=== PATIENT | female | born 1940 | race Hispanic/Latino ===

== ENCOUNTER 2017-03-04 21:08 | Observation (INO) | payer MEDICARE ==
[2017-03-04 21:09] VITALS: BMI 34.2
[2017-03-04] MEDS ORDERED: Nitroglycerin 2% Ointment Foilpak UD TOP STA (22:09)
[2017-03-04] MEDS ORDERED: Alum-Mag Hydrox-Simethicone Susp (30 mL) PO STA (22:10)
[2017-03-04] MEDS ORDERED: Nitroglycerin 2% Ointment Foilpak UD TOP ONE (22:18)
[2017-03-04 22:23] LABS: BASO # 0.1 K/uL (0.0-0.2); BASO % 0.5 % (0.0-2.0); EOS # 0.4 K/uL (0.0-0.7); EOS % 3.8 % (0.0-4.0); HEMATOCRIT 37.6 % (34.0-47.0); LYMPH # 2.5 K/uL (1.0-4.3); LYMPH % 26.2 % (20.0-40.0); MEAN CORPUSCULAR HGB CONC 33.8 g/dL (33.0-37.0); MEAN PLATELET VOLUME 7.7 fL (7.2-11.7); MONO # 0.7 K/uL (0.0-0.8); MONO % 7.5 % (0.0-10.0); NRBC % 0.1 % (0.0-2.0); RED CELL DISTRIBUTION WIDTH 14.1 % (11.5-14.5); WHITE BLOOD COUNT 9.7 K/uL (4.8-10.8)
[2017-03-04 22:36] LABS: INR 1.1
[2017-03-04 22:39] LABS: CHLORIDE 100 mmol/L (98-107); POTASSIUM 4.3 mmol/L (3.6-5.2); SODIUM 134 mmol/L (132-148)
[2017-03-04 22:41] LABS: BILIRUBIN,TOTAL 0.4 mg/dL (0.2-1.3); CARBON DIOXIDE 22 mmol/L (22-30); GFR AFRICAN-AMERICAN 53
[2017-03-04 22:42] LABS: ALB/GLOB RATIO 1.2 (1.0-2.1); ALKALINE PHOSPHATASE 133 U/L (38-126); ALT/SGPT 26 U/L (9-52); AST/SGOT 23 U/L (14-36); BLOOD UREA NITROGEN 22 mg/dL (7-17); GLUCOSE,RANDOM 112 mg/dL (65-105); TOTAL PROTEIN 7.7 g/dL (6.3-8.3)
[2017-03-04] MEDS ORDERED: Aluminum Hydroxide/Magnesium Hydroxide Susp (30 mL) ONE (22:46)
--- NOTE | 2017-03-04 23:39 | C.PDOC ---
History Of Present Illness Pt c/o chest pain radiating to left arm. Time Seen by Provider: 03/04/17 21:54 Chief Complaint (Nursing): Chest Pain History Per: Patient, Family Onset/Duration Of Symptoms: Hrs (2) Current Symptoms Are (Timing): Still Present Severity: Moderate Quality: "Pain" Associated Symptoms: Nausea, Other (Near syncope) Modifying Factors: Other Indicated Below Alleviating Factors: None Additional History Per: Prior Records Past Medical History Reviewed: Historical Data, Nursing Documentation, Vital Signs Vital Signs: Last Vital Signs Temp 98 F 03/04/17 21:18 Pulse 76 03/04/17 22:31 Resp 18 03/04/17 22:31 BP 158/74 H 03/04/17 22:31 Pulse Ox 95 03/04/17 22:31 - Medical History PMH: Anxiety, Arthritis, Atrial Fibrillation, CAD, Cardia Arrhythmia (SVT), Colonic Polyps, Depression (lost in may 2014), Fractures (Left Wrist Fx.3 yrs agoTreated with casT), GERD, Hiatal Hernia, HTN, Hypercholesterolemia, TIA (MULTIPLE; LAST ONE 2013) Surgical History: Cholecystectomy, Coronary Stent (4), Endoscopy, Hernia Repair - [facility] Procedures ANGIOPLASTY OF OTHER NON-CORONARY VESSEL(S) (04/20/14) CONTRAST AORTOGRAM (04/20/14) CONTRAST ARTERIOGRAM-LEG (04/20/14) CORONAR ARTERIOGR-2 CATH (01/19/14) ESOPHAGOGASTRODUODENOSCOPY [EGD] W/CLOSED BIOPSY (10/06/14) INFLUENZA VACCINATION (03/27/14) INSEJ [id number] PERIPHERAL NON-CORONARY VES STENT(S) (04/20/14) INSERT OF MONITOR DEV INTO CHEST SUBCU/FASCIA, OPEN APPROACH (12/21/15) INSERTION OF ONE VASCULAR STENT (04/20/14) INSERTION OF THREE VASCULAR STENTS (01/20/14) INSRT OF DRUG-ELUTING CORON ARTERY STENTS(S) (01/20/14) INTRAVASCULAR IMAGING OF PERIPHERAL VESSELS (04/20/14) LEFT HEART CARDIAC CATH (05/08/14) LT HEART ANGIOCARDIOGRAM (05/08/14) OTH NONOPER CARD AND VASC MEASURE (09/21/14) PERCUTANEOUS TRANSLUMINAL CORONARY ANGIOPLASTY [PTCA] (01/20/14) PROCEDURE ON SINGLE VESSEL (01/20/14) PROCEDURE ON TWO VESSELS (04/20/14) Family History: States: Unknown Family Hx - Social History Hx Tobacco Use: No Hx Alcohol Use: No Hx Substance Use: No - Immunization History Hx Tetanus Toxoid Vaccination: No Hx Influenza Vaccination: Yes Hx Pneumococcal Vaccination: No Review Of Systems Except As Marked, All Systems Reviewed And Found Negative. Constitutional: Negative for: Fever Cardiovascular: Positive for: Chest Pain, Light Headedness Respiratory: Negative for: Hemoptysis Gastrointestinal: Negative for: Vomiting, Abdominal Pain Musculoskeletal: Positive for: Shoulder Pain (left), Back Pain. Negative for: Neck Pain Skin: Negative for: Rash Neurological: Positive for: Headache. Negative for: Weakness, Numbness Physical Exam - Physical Exam Appears: Non-toxic, No Acute Distress Skin: Normal Color, Warm, Dry, No Rash Head: Atraumatic, Normacephalic Eye(s): bilateral: PERRL, EOMI Neck: Normal ROM, Supple Cardiovascular: Rhythm Regular Respiratory: Normal Breath Sounds, No Accessory Muscle Use Gastrointestinal/Abdominal: Soft, No Tenderness Back: No CVA Tenderness Extremity: Normal ROM, No Calf Tenderness Neurological/Psych: Oriented x3, Normal Motor, Normal Sensation ED Course And Treatment - Laboratory Results Result Diagrams: 03/04/17 22:20 03/04/17 22:20 Lab Interpretation: No Acute Changes ECG: Interpreted By Me, Viewed By Me ECG Rhythm: Sinus Rhythm, Nonspecific Changes Rate From EC O2 Sat by Pulse Oximetry: 95 Pulse Ox Interpretation: Normal - Radiology CXR: Interpreted by Me, Viewed By Me CXR Interpretation: Yes: No Acute Disease Progress - Interventions Interventions:: Observation, Oxygen - Medications Administered Oral: Antacid, Aspirin (taken by pt prior to arrival) Intravenous: H-2 paulo - Data Reviewed Data Reviewed: Lab, Old records - Patient Status Patient status: Partially improved - Continuity of Care Discussed patient case with:: Patient, Family-HIPPA compliant, ED Nurse, PMD Disposition Discussed With : Franck Hoffman Comment: He accepted pt on his service and gave admitting orders to the nurse. Doctor Will See Patient In The: Hospital Counseled Patient/Family Regarding: Studies Performed, Diagnosis - Disposition Disposition: HOSPITALIZED Disposition Time: 23:42 Condition: FAIR - Clinical Impression Clinical Impression: Chest pain, rule out acute myocardial infarction
[2017-03-05 00:29] VITALS: RESP 20
--- NOTE | 2017-03-05 07:57 | RAD ---
PROCEDURE: CHEST RADIOGRAPH, 1 VIEW HISTORY: chest pain COMPARISON: Portable chest 12/20/2015. FINDINGS: LUNGS: No definite infiltrate appreciated bilaterally. Limited linear atelectasis appears in the mid right lung zone laterally and an event recorder is noted at the inferior left chest. PLEURA: Trace left pleural effusion is in question. No right pleural effusion. No pneumothorax bilaterally. CARDIOVASCULAR: Stable cardiomegaly. No pulmonary vascular derangement identified. OSSEOUS STRUCTURES: No significant abnormalities. VISUALIZED UPPER ABDOMEN: Mammilated and elevated right hemidiaphragm is again appreciated. OTHER FINDINGS: None. IMPRESSION: Trace of pleural effusion is in question and limited linear atelectasis in the mid right lung zone laterally. No acute infiltrate bilaterally. Stable cardiomegaly. Interval event recorder now identified in the left chest inferiorly.
[2017-03-05] MEDS: Ranolazine 500 mg Extended Release Tablets PO SCH (09:48)
[2017-03-05] MEDS: Multivitamin With Minerals Tab PO SCH (09:48)
[2017-03-05] MEDS: Enoxaparin 30 mg Syringe SC SCH (09:51)
[2017-03-05] MEDS ORDERED: CHOLECALCIFEROL 2000 UNIT PO SCH (10:00)
[2017-03-05] MEDS ORDERED: Pantoprazole 40 mg EC Tab PO SCH (10:00)
[2017-03-05] MEDS ORDERED: Aluminum Hydroxide/Magnesium Hydroxide Susp (30 mL) PO ONE (12:30)
[2017-03-05] MEDS: Pantoprazole 40 mg EC Tab PO SCH (13:24)
[2017-03-05] MEDS ORDERED: Home Med 1 UNIT (Atorvastatin [Lipitor] 1 TAB) PO SCH (18:00)
[2017-03-05] MEDS: diltiaZEM 120 mg/24 Hours CD Cap PO SCH (18:08)
--- NOTE | 2017-03-05 19:25 | CP.PCM.HP ---
Past Patient History - Past Medical History & Family History Past Medical History?: Yes - Past Social History Smoking Status: Never Smoked - CARDIAC Hx Hypercholesterolemia: Yes Hx Hypertension: Yes - PULMONARY Hx Respiratory Disorders: No - NEUROLOGICAL Hx Transient Ischemic Attacks (TIA): Yes (MULTIPLE; LAST ONE 2013) - HEENT Hx HEENT Problems: No - RENAL Hx Chronic Kidney Disease: No - ENDOCRINE/METABOLIC Hx Diabetes Mellitus Type 2: Yes - HEMATOLOGICAL/ONCOLOGICAL Hx Blood Disorders: No Hx Blood Transfusions: No Hx Blood Transfusion Reaction: No - INTEGUMENTARY Hx Dermatological Problems: No - MUSCULOSKELETAL/RHEUMATOLOGICAL Hx Arthritis: Yes - GASTROINTESTINAL Hx Gastrointestinal Disorders: Yes Hx Gastroesophageal Reflux: Yes Hx Hemorrhoids: Yes Hx Ulcer: Yes - GENITOURINARY/GYNECOLOGICAL Hx Genitourinary Disorders: No - PSYCHIATRIC Hx Anxiety: Yes Hx Depression: Yes (lost in may 2014) Hx Substance Use: No - SURGICAL HISTORY Hx Cholecystectomy: Yes Hx Coronary Stent: Yes (4) - ANESTHESIA Hx Anesthesia: Yes Hx Anesthesia Reactions: No Hx Malignant Hyperthermia: No Meds Allergies/Adverse Reactions: Allergies Allergy/AdvReac Type Severity Reaction Status Date / Time tramadol Allergy Severe SWELLING Verified 07/28/16 14:15 Penicillins Allergy Intermediate RASH Verified 07/28/16 14:15 ticagrelor [From BRILINTA] Allergy Intermediate RASH Verified 07/28/16 14:15 chamonile Allergy Severe ANAPHYLAXIS Uncoded 07/28/16 14:15 ct contrast Allergy Severe SWELLING Uncoded 07/28/16 14:15 Results - Vital Signs Recent Vital Signs: Last Vital Signs Temp 98.2 F 03/05/17 15:00 Pulse 82 03/05/17 15:00 Resp 20 03/05/17 15:00 BP 163/93 H 03/05/17 15:00 Pulse Ox 95 03/05/17 15:00 - Labs Result Diagrams: 03/04/17 22:20 03/04/17 22:20 Labs: Laboratory Results - last 24 hr 03/04/17 03/04/17 03/04/17 22:20 22:20 22:20 WBC 9.7 RBC 4.37 Hgb 12.7 Hct 37.6 MCV 86.0 D MCH 29.0 MCHC 33.8 RDW 14.1 Plt Count 281 MPV 7.7 Neut % (Auto) 62.0 Lymph % (Auto) 26.2 Sevier % (Auto) 7.5 Eos % (Auto) 3.8 Baso % (Auto) 0.5 Neut # 6.0 Lymph # 2.5 Sevier # 0.7 Eos # 0.4 Baso # 0.1 PT 11.8 INR 1.1 APTT 34 Sodium 134 Potassium 4.3 Chloride 100 Carbon Dioxide 22 Anion Gap 16 BUN 22 H Creatinine 1.2 Est GFR ( Amer) 53 Est GFR (Non-Af Amer) 44 POC Glucose (mg/dL) Random Glucose 112 H Calcium 9.0 Total Bilirubin 0.4 AST 23 ALT 26 Alkaline Phosphatase 133 H Total Creatine Kinase 38 CK-MB (Mass) 1.03 Troponin I, Quant < 0.0120 NT-Pro-B Natriuret Pep 75.4 Total Protein 7.7 Albumin 4.2 Globulin 3.4 Albumin/Globulin Ratio 1.2 03/05/17 03/05/17 03/05/17 06:10 08:50 11:25 WBC RBC Hgb Hct MCV MCH MCHC RDW Plt Count MPV Neut % (Auto) Lymph % (Auto) Sevier % (Auto) Eos % (Auto) Baso % (Auto) Neut # Lymph # Sevier # Eos # Baso # PT INR APTT Sodium Potassium Chloride Carbon Dioxide Anion Gap BUN Creatinine Est GFR ( Amer) Est GFR (Non-Af Amer) POC Glucose (mg/dL) 80 159 H Random Glucose Calcium Total Bilirubin AST ALT Alkaline Phosphatase Total Creatine Kinase 39 CK-MB (Mass) 1.03 Troponin I, Quant < 0.0120 NT-Pro-B Natriuret Pep Total Protein Albumin Globulin Albumin/Globulin Ratio 03/05/17 16:32 WBC RBC Hgb Hct MCV MCH MCHC RDW Plt Count MPV Neut % (Auto) Lymph % (Auto) Sevier % (Auto) Eos % (Auto) Baso % (Auto) Neut # Lymph # Sevier # Eos # Baso # PT INR APTT Sodium Potassium Chloride Carbon Dioxide Anion Gap BUN Creatinine Est GFR ( Amer) Est GFR (Non-Af Amer) POC Glucose (mg/dL) 116 H Random Glucose Calcium Total Bilirubin AST ALT Alkaline Phosphatase Total Creatine Kinase CK-MB (Mass) Troponin I, Quant NT-Pro-B Natriuret Pep Total Protein Albumin Globulin Albumin/Globulin Ratio
[2017-03-06] MEDS ORDERED: Aminophylline 25 mg/ml Inj ONE (08:52)
[2017-03-06] MEDS: Pantoprazole 40 mg EC Tab PO SCH ×2 (10:57→13:48)
[2017-03-06] MEDS: Multivitamin With Minerals Tab PO SCH ×2 (10:57→13:48)
[2017-03-06] MEDS: Ranolazine 500 mg Extended Release Tablets PO SCH ×2 (10:57→13:48)
[2017-03-06] MEDS: Enoxaparin 30 mg Syringe SC SCH ×2 (10:57→13:48)
[2017-03-06] MEDS: Ergocalciferol 50,000 Intl Units Cap PO SCH ×2 (10:57→13:47)
[2017-03-06 15:20] VITALS: BP 157/80; TEMP 97.8; O2SAT 96
--- NOTE | 2017-03-06 15:36 | CARD ---
APPROVED REPORT EKG Measurement Heart [id number] 196P20 [id number] <Conclusion> Normal sinus rhythm Septal infarct, age undetermined Abnormal ECG
--- NOTE | 2017-03-06 16:15 | CARD ---
APPROVED REPORT Protocol: LEXISCAN Test Type: LEXISCAN STRESS Test Indications: CHEST PAIN Target HR: 146 bpm Resting ECG: Normal Resting Heart Rate: 72 bpm Resting Blood Pressure: 130/80mmHg submaximum (85%): 124 bpm TEST SUMMARY PREINFSNHYPERV.45:05..1.574135/80.0. INFUSIONDOSE 100:30..1.074/.1. YIFPTPAVQ91:17..1.9000704/80.0. PROCEDURE Pharmacologic stress testing was performed using 0.4mg per 5ml of regadenoson given intravenously over 7-10 seconds. POST EXERCISE Reason for Termination: Stress test completed Target HR: No Max HR: 74 bpm 69% of Maximum Predicted HR: 146 bpm Exercise duration: 00:30 min:sec, 0 Stage Exercise capacity: 1.0METs Max Blood Pressure: 130/80mmHg Blood Pressure response to exercise: Appropriate Heart Rate response to exercise: Appropriate Chest Pain: No, None Angina index: 0 Arrhythmia: No, None ST Change: No, None Deviation: 0 mm INTERPRETATION Stress EKG Conclusion: Nuclear report to follow EXAM: Myocardial Perfusion REST/STRESS Imaging Protocol The imaging protocol used to acquire images was Rest Tc-99m/stress Tc-99m 1 day Rest Spect myocardial perfusion imaging was performed in supine position 45 minutes following the injection of 12.3 mCi of Tc-99 Myoview. Gated Stress Spect was performed 45 minutes after intravenous 31.2 mCi Tc-99 Myoview injection. The images were gated to evaluate regional wall motion and calculate ventricular ejection fraction.Images were reconstructed using backfilter projection method in short horizontal and verticle long axis. Spect slices were generated. RESTING DATA EDV68.47xfCE6.90L/min ESV14.00mlMyocardial Mple343.00g Av. Heart Rate72.00bpm EF79.00% STRESS DATA EDV67.39hmRS0.90L/min ESV13.00mlMyocardial Gsbo909.00g EF81.00% Regional WT score at stress:1.00 Regional WM score at stress:0.00 Summed WT score at stress:2.00 Av. Heart Rate73.00bpmSummed WM score at stress:0.00 LV Perf. Quant 17 Seg. SSS10.00 17 Seg. SRS4.00 17 Seg. SDS6.00 Stress Defect Extent (% LAD)2.50Rest Defect Extent (% LAD)0.00Rev. Defect Extent (% LAD)2.50 Stress Defect Extent (% LCX)26.30Rest Defect Extent (% LCX)17.50Rev. Defect Extent (% LCX)6.30 Stress Defect Extent (% RCA)18.90Rest Defect Extent (% RCA)14.40Rev. Defect Extent (% RCA)4.40 Stress Defect Extent (% KAHLIL)17.40Rest Defect Extent (% KAHLIL)10.00Rev. Defect Extent (% KAHLIL)7.40 Other Information Quality:Fair Left Ventricle LV Function:Left ventricle systolic function is normal. The Ejection Fraction is >55%. Conclusion 1. Moderate sized fixed inferior defect. No stress induced ischemia. EF 70%
--- NOTE | 2017-03-06 16:30 | CP.PCM.PN ---
Subjective - Date & Time of Evaluation Date of Evaluation: 03/06/17 Time of Evaluation: 13:35 - Subjective Subjective: Pt seen today , awake, alert, ox3, denie sany chest pain , sob, palpitations, dizziness, headache, N/V , c/o reflux No overnight events recorded on monitor troponin - negative s/p stress test today - normal stress test Objective - Vital Signs/Intake and Output Vital Signs (last 24 hours): Temp Pulse Resp BP Pulse Ox 97.8 F 69 20 157/80 H 96 03/06/17 15:15 03/06/17 15:15 03/06/17 15:15 03/06/17 15:15 03/06/17 15:15 Intake and Output: 03/06/17 03/06/17 06:59 18:59 Intake Total 360 Balance 360 - Medications Medications: Current Medications Acetaminophen (Tylenol 325mg Tab) 650 mg PO Q6 PRN PRN Reason: Headache Last Admin: 03/05/17 22:56 Dose: 650 mg Alprazolam (Xanax) 0.5 mg PO DAILY PRN PRN Reason: Anxiety Stop: 03/11/17 23:43 Alprazolam (Xanax) 0.5 mg PO HS [facility] Last Admin: 03/05/17 22:56 Dose: 0.5 mg Alprazolam (Xanax) 0.25 mg PO TID PRN PRN Reason: Anxiety Stop: 03/12/17 19:23 Aspirin (Aspirin Chewable) 81 mg PO DAILY [facility] Last Admin: 03/06/17 13:47 Dose: 81 mg Diltiazem HCl (Cardizem Cd) 120 mg PO QPM [facility] Last Admin: 03/05/17 18:08 Dose: 120 mg Enoxaparin Sodium (Lovenox) 30 mg SC 1000 [facility] Last Admin: 03/06/17 13:48 Dose: 30 mg Ergocalciferol (Drisdol 50,000 Intl Units Cap) 1 cap PO QWK [facility] Last Admin: 03/06/17 13:47 Dose: 1 cap Gabapentin (Neurontin) 200 mg PO QPM [facility] Last Admin: 03/05/17 18:09 Dose: 200 mg Losartan Potassium (Cozaar) 25 mg PO QPM [facility] Last Admin: 03/05/17 18:08 Dose: 25 mg Losartan Potassium (Cozaar) 50 mg PO DAILY [facility] Last Admin: 03/06/17 13:48 Dose: 50 mg Multivitamins/Minerals (Therapeutic-M Tab) 1 tab PO DAILY [facility] Last Admin: 03/06/17 13:48 Dose: 1 tab Pantoprazole Sodium (Protonix Ec Tab) 40 mg PO DAILY [facility] Last Admin: 03/06/17 13:48 Dose: 40 mg Ranolazine (Ranexa) 500 mg PO DAILY [facility] Last Admin: 03/06/17 13:48 Dose: 500 mg Rosuvastatin Calcium (Crestor) 5 mg PO QPM [facility] Last Admin: 03/05/17 18:08 Dose: 5 mg - Labs Labs: 03/04/17 22:20 03/04/17 22:20 PT 11.8 SECONDS (9.7-12.2) 03/04/17 22:20 INR 1.1 03/04/17 22:20 APTT 34 SECONDS (21-34) 03/04/17 22:20 - Constitutional Appears: Well, No Acute Distress - Respiratory Exam Respiratory Exam: Clear to Ausculation Bilateral, NORMAL BREATHING PATTERN - Cardiovascular Exam Cardiovascular Exam: REGULAR RHYTHM, +S1, +S2 - Neurological Exam Neurological Exam: Alert, Awake, Oriented x3 Assessment and Plan - Assessment and Plan (Free Text) Assessment: A/P 76 yr old female with PMHX of Anxiety, Arthritis, Atrial Fibrillation, CAD, GERD, Hiatal Hernia, HTN, Hypercholesterolemia admitted for chest pain troponin - x negative s/p stress test - Negative for stress induced ischemia D/W Dr. Mckenna, cleared for discharge from cardiology standpoint and f/u with Dr. Hoffman office in 2 weeks D/W Dr. Hoffman , cleared for discharge home today and f/u with Dr. Hoffman office Discharge plan discussed with patient who understand and agrees with plan
[2017-03-06] MEDS: diltiaZEM 120 mg/24 Hours CD Cap PO SCH (17:41)
[2017-03-06 18:38] VITALS: PULSE 75
--- NOTE | 2017-03-06 22:42 | CARD ---
APPROVED REPORT EKG Measurement Heart [id number] AL 164P29 [id number] <Conclusion> Normal sinus rhythm Minimal voltage criteria for LVH, may be normal variant Borderline ECG
--- NOTE | 2017-03-06 22:48 | CP.PCM.CON ---
History of Present Illness - History of Present Illness History of Present Illness: Patient seen and evaluated Stress test: No evidence of ischemia Normal EF HTN CAD PAD Will continue current meds. Once BP under control will d/c patient Past Patient History - Past Medical History & Family History Past Medical History?: Yes - Past Social History Smoking Status: Never Smoked - CARDIAC Hx Hypercholesterolemia: Yes Hx Hypertension: Yes - PULMONARY Hx Respiratory Disorders: No - NEUROLOGICAL Hx Transient Ischemic Attacks (TIA): Yes (MULTIPLE; LAST ONE 2013) - HEENT Hx HEENT Problems: No - RENAL Hx Chronic Kidney Disease: No - ENDOCRINE/METABOLIC Hx Diabetes Mellitus Type 2: Yes - HEMATOLOGICAL/ONCOLOGICAL Hx Blood Disorders: No Hx Blood Transfusions: No Hx Blood Transfusion Reaction: No - INTEGUMENTARY Hx Dermatological Problems: No - MUSCULOSKELETAL/RHEUMATOLOGICAL Hx Arthritis: Yes - GASTROINTESTINAL Hx Gastrointestinal Disorders: Yes Hx Gastroesophageal Reflux: Yes Hx Hemorrhoids: Yes Hx Ulcer: Yes - GENITOURINARY/GYNECOLOGICAL Hx Genitourinary Disorders: No - PSYCHIATRIC Hx Anxiety: Yes Hx Depression: Yes (lost in may 2014) Hx Substance Use: No - SURGICAL HISTORY Hx Cholecystectomy: Yes Hx Coronary Stent: Yes (4) - ANESTHESIA Hx Anesthesia: Yes Hx Anesthesia Reactions: No Hx Malignant Hyperthermia: No Meds Allergies/Adverse Reactions: Allergies Allergy/AdvReac Type Severity Reaction Status Date / Time tramadol Allergy Severe SWELLING Verified 07/28/16 14:15 Penicillins Allergy Intermediate RASH Verified 07/28/16 14:15 ticagrelor [From BRILINTA] Allergy Intermediate RASH Verified 07/28/16 14:15 chamonile Allergy Severe ANAPHYLAXIS Uncoded 07/28/16 14:15 ct contrast Allergy Severe SWELLING Uncoded 07/28/16 14:15 - Medications Medications: Current Medications Acetaminophen (Tylenol 325mg Tab) 650 mg PO Q6 PRN PRN Reason: Headache Last Admin: 03/05/17 22:56 Dose: 650 mg Alprazolam (Xanax) 0.5 mg PO HS [facility] Last Admin: 03/06/17 22:23 Dose: Not Given Alprazolam (Xanax) 0.25 mg PO TID PRN PRN Reason: Anxiety Stop: 03/12/17 19:23 Aspirin (Aspirin Chewable) 81 mg PO DAILY [facility] Last Admin: 03/06/17 13:47 Dose: 81 mg Diltiazem HCl (Cardizem Cd) 120 mg PO QPM [facility] Last Admin: 03/06/17 17:41 Dose: 120 mg Enoxaparin Sodium (Lovenox) 30 mg SC 1000 [facility] Last Admin: 03/06/17 13:48 Dose: 30 mg Ergocalciferol (Drisdol 50,000 Intl Units Cap) 1 cap PO QWK [facility] Last Admin: 03/06/17 13:47 Dose: 1 cap Gabapentin (Neurontin) 200 mg PO QPM [facility] Last Admin: 03/06/17 17:40 Dose: 200 mg Losartan Potassium (Cozaar) 25 mg PO QPM [facility] Last Admin: 03/06/17 19:42 Dose: 25 mg Losartan Potassium (Cozaar) 50 mg PO DAILY [facility] Last Admin: 03/06/17 13:48 Dose: 50 mg Multivitamins/Minerals (Therapeutic-M Tab) 1 tab PO DAILY [facility] Last Admin: 03/06/17 13:48 Dose: 1 tab Pantoprazole Sodium (Protonix Ec Tab) 40 mg PO DAILY [facility] Last Admin: 03/06/17 13:48 Dose: 40 mg Ranolazine (Ranexa) 500 mg PO DAILY [facility] Last Admin: 03/06/17 13:48 Dose: 500 mg Rosuvastatin Calcium (Crestor) 5 mg PO QPM [facility] Last Admin: 03/06/17 17:40 Dose: 5 mg Results - Vital Signs Recent Vital Signs: Last Vital Signs Temp 97.8 F 03/06/17 15:15 Pulse 75 03/06/17 18:00 Resp 20 03/06/17 15:15 BP 157/80 H 03/06/17 15:15 Pulse Ox 96 03/06/17 15:15 - Labs Result Diagrams: 03/04/17 22:20 03/04/17 22:20 Labs: Laboratory Results - last 24 hr 03/06/17 03/06/17 03/06/17 06:31 12:54 16:10 POC Glucose (mg/dL) 107 166 H 166 H 03/06/17 21:02 POC Glucose (mg/dL) 131 H
--- NOTE | 2017-03-06 23:44 | CP.PCM.PN ---
Subjective - Date & Time of Evaluation Date of Evaluation: 03/06/17 Time of Evaluation: 23:44 Objective - Vital Signs/Intake and Output Vital Signs (last 24 hours): Temp Pulse Resp BP Pulse Ox 97.8 F 75 20 157/80 H 96 03/06/17 15:15 03/06/17 18:00 03/06/17 15:15 03/06/17 15:15 03/06/17 15:15 Intake and Output: 03/06/17 03/07/17 18:59 06:59 Intake Total 360 400 Balance 360 400 - Labs Labs: 03/04/17 22:20 03/04/17 22:20 PT 11.8 SECONDS (9.7-12.2) 03/04/17 22:20 INR 1.1 03/04/17 22:20 APTT 34 SECONDS (21-34) 03/04/17 22:20
--- NOTE | 2017-03-07 22:19 | CARD ---
APPROVED REPORT EXAM: Two-dimensional and M-mode echocardiogram with Doppler and color Doppler. Other Information Quality : GoodRhythm : NSR INDICATION Dizziness and Vertigo Dyspnea Cardiac Disease: CAD Chest Pain Congestive Heart Failure RISK FACTORS Hypertension 2D DIMENSIONS IVSd1.0 (0.7-1.1cm)LVDd4.9 (3.9-5.9cm) PWd1.1 (0.7-1.1cm)LVDs2.7 (2.5-4.0cm) FS (%) 43.6 %LVEF (%)74.7 (>50%) M-Mode DIMENSIONS Left Atrium (MM)4.33 (2.5-4.0cm)Aortic Root3.15 (2.2-3.7cm) Aortic Cusp Exc.2.31 (1.5-2.0cm) Mitral Valve MV E Fwxnqatl67.0cm/sMV A Ovjdzxrm117.5cm/sE/A ratio0.9 TDI E/Lateral E'0.0E/Medial E'0.0 Tricuspid Valve TR Peak Yyzzktvw556cv/sTR Peak Gr.37shHeEOFR09fdMp LEFT VENTRICLE The left ventricle is normal size. There is borderline concentric left ventricular hypertrophy. The left ventricular function is normal. The left ventricular ejection fraction is within the normal range. There is normal LV segmental wall motion. Transmitral Doppler flow pattern is Grade I-abnormal relaxation pattern. RIGHT VENTRICLE The right ventricle is normal size. There is normal right ventricular wall thickness. The right ventricular systolic function is normal. ATRIA The left atrium is mildly dilated. The right atrium size is normal. AORTIC VALVE The aortic valve is mildly thickened. No aortic regurgitation is present. There is no aortic valvular stenosis. MITRAL VALVE The mitral valve is mildly thickened. There is no mitral valve stenosis. There is no mitral valve regurgitation noted. TRICUSPID VALVE The tricuspid valve is normal in structure. PULMONIC VALVE There is mild pulmonic valvular regurgitation. GREAT VESSELS The aortic root is normal in size. The IVC is normal in size and collapses >50% with inspiration. PERICARDIAL EFFUSION There is a trace loculated anterior pericardial effusion. <Conclusion> The left ventricle is normal size. There is borderline concentric left ventricular hypertrophy. The left ventricular function is normal. The left ventricular ejection fraction is within the normal range. There is normal LV segmental wall motion. Transmitral Doppler flow pattern is Grade I-abnormal relaxation pattern.
== END 2017-03-06 23:20 | disposition home or self-care (01) ==
LOC: C.ER 21:08 → C.5S 23:45 → INTOOBSV 23:45
PROVIDERS: ADMIT Internal Medicine; ATTEND Internal Medicine
DX: R07.9 Chest pain, unspecified (principal); I10 Essential (primary) hypertension; I48.91 Unspecified atrial fibrillation; E11.9 Type 2 diabetes mellitus without complications; I25.10 Atherosclerotic heart disease of native coronary artery without angina pectoris
CPT/HCPCS: 36415; 71010; 78452; 80053; 82948; 83880; 84484; 85025; 85610; 85730; 93005; 93017; 93306; 96374; 97116; 97162; 99285; A9502; G0378; G8978; G8979; J1650; J2785

== ENCOUNTER 2018-01-12 17:41 | Inpatient (IN) | payer MEDICARE ==
[2018-01-12 17:42] VITALS: BMI 35.7
[2018-01-12 19:23] LABS: BASO % 0.6 % (0.0-2.0); EOS # 0.2 K/uL (0.0-0.7); EOS % 2.8 % (0.0-4.0); HEMOGLOBIN 11.3 g/dL (11.0-16.0); LYMPH # 2.4 K/uL (1.0-4.3); LYMPH % 34.5 % (20.0-40.0); MEAN CELL VOLUME 87.3 fL (81.0-99.0); MEAN CORPUSCULAR HEMOGLOBIN 29.4 pg (27.0-31.0); MEAN CORPUSCULAR HGB CONC 33.7 g/dL (33.0-37.0); MEAN PLATELET VOLUME 7.5 fL (7.2-11.7); MONO # 0.5 K/uL (0.0-0.8); MONO % 7.4 % (0.0-10.0); NEUT # 3.9 K/uL (1.8-7.0); NEUT % 54.7 % (50.0-75.0); NRBC % 0.1 % (0.0-2.0); RBC 3.85 Mil/uL (3.80-5.20); RED CELL DISTRIBUTION WIDTH 13.9 % (11.5-14.5); WHITE BLOOD COUNT 7.1 K/uL (4.8-10.8)
[2018-01-12 19:27] LABS: SQUAMOUS EPITHIAL < 1 /hpf (0-5); URINE BILIRUBIN NEGATIVE (NEGATIVE); URINE BLOOD NEGATIVE (NEGATIVE); URINE CLARITY Clear (Clear); URINE COLOR Yellow (YELLOW); URINE GLUCOSE (UA) NORMAL (Normal); URINE LEUKOCYTE ESTERASE NEG Leu/uL (Negative); URINE PROTEIN NEGATIVE (NEGATIVE); URINE UROBILINOGEN NORMAL mg/dL (0.2-1.0)
[2018-01-12 19:42] LABS: ALB/GLOB RATIO 1.4 (1.0-2.1); ALT/SGPT 26 U/L (9-52); AST/SGOT 15 U/L (14-36); BLOOD UREA NITROGEN 22 mg/dL (7-17); CALCIUM 9.1 mg/dl (8.6-10.4); GFR NON-AFRICAN AMERICAN > 60; HDL CHOLESTEROL 43 mg/dL (30-70); LIPASE 64 U/L (23-300)
[2018-01-12 19:54] LABS: B-TYPE NATRIURETIC PEPTIDE 65.5 pg/mL (0-900)
--- NOTE | 2018-01-12 20:23 | C.PDOC ---
History Of Present Illness 77 y/o female presents to the ED complaining of sudden onset of chest pain and SOB for 2-3 hours. She states at first the pain was constant but became intermittent as time went on. The patient also reports she has been having rectal bleeding for one week. She states it was constant for the first three days and she admits to having bloody BM today without stool. The patient states she is scheduled to have a colostomy in three days. She also reports not taking her aspirin since 4 days ago. The patient denies any nausea, diarrhea or vomiting Time Seen by Provider: 01/12/18 18:56 Chief Complaint (Nursing): Chest Pain History Per: Patient History/Exam Limitations: no limitations Onset/Duration Of Symptoms: Days Current Symptoms Are (Timing): Still Present Quality: "Pain" Associated Symptoms: denies: Nausea Recent travel outside of the [place]: No Past Medical History Reviewed: Historical Data, Nursing Documentation, Vital Signs Vital Signs: Last Vital Signs Temp 98.5 F 01/12/18 17:45 Pulse 77 01/12/18 18:05 Resp 12 01/12/18 18:05 BP 177/78 H 01/12/18 18:05 Pulse Ox 99 01/12/18 20:48 - Medical History PMH: Anemia, Anxiety, Arthritis, Atrial Fibrillation, CAD, Cardia Arrhythmia ( SVT, A-FIB), Colonic Polyps, Depression, Fractures, GERD, Hiatal Hernia, HTN, Hypercholesterolemia, Sleep Apnea, TIA (MULTIPLE; LAST ONE 2013) Denies: Chronic Kidney Disease Surgical History: Cholecystectomy, Coronary Stent (X4), Endoscopy, Hernia Repair Denies: Pacemaker - [facility] Procedures ANGIOPLASTY OF OTHER NON-CORONARY VESSEL(S) (04/20/14) CONTRAST AORTOGRAM (04/20/14) CONTRAST ARTERIOGRAM-LEG (04/20/14) CORONAR ARTERIOGR-2 CATH (01/19/14) ESOPHAGOGASTRODUODENOSCOPY [EGD] W/CLOSED BIOPSY (10/06/14) INFLUENZA VACCINATION (03/27/14) INSEJ [id number] PERIPHERAL NON-CORONARY VES STENT(S) (04/20/14) INSERT OF MONITOR DEV INTO CHEST SUBCU/FASCIA, OPEN APPROACH (12/21/15) INSERTION OF ONE VASCULAR STENT (04/20/14) INSERTION OF THREE VASCULAR STENTS (01/20/14) INSRT OF DRUG-ELUTING CORON ARTERY STENTS(S) (01/20/14) INTRAVASCULAR IMAGING OF PERIPHERAL VESSELS (04/20/14) LEFT HEART CARDIAC CATH (05/08/14) LT HEART ANGIOCARDIOGRAM (05/08/14) OTH NONOPER CARD AND VASC MEASURE (09/21/14) PERCUTANEOUS TRANSLUMINAL CORONARY ANGIOPLASTY [PTCA] (01/20/14) PROCEDURE ON SINGLE VESSEL (01/20/14) PROCEDURE ON TWO VESSELS (04/20/14) Family History: States: Unknown Family Hx - Social History Hx Tobacco Use: No Hx Alcohol Use: No Hx Substance Use: No - Immunization History Hx Tetanus Toxoid Vaccination: No Hx Influenza Vaccination: Yes Hx Pneumococcal Vaccination: No Review Of Systems Except As Marked, All Systems Reviewed And Found Negative. Constitutional: Negative for: Fever, Chills, Weakness, Malaise Eyes: Negative for: Pain, Vision Change, Conjunctivae Inflammation ENT: Negative for: Ear Pain, Ear Discharge, Nose Pain Cardiovascular: Positive for: Chest Pain. Negative for: Palpitations, Orthopnea , Edema, Light Headedness Respiratory: Positive for: Shortness of Breath. Negative for: Cough, Hemoptysis , SOB with Excertion, Pleuritic Pain Gastrointestinal: Positive for: Hematochezia. Negative for: Nausea, Vomiting, Abdominal Pain, Diarrhea, Constipation, Rectal Pain Genitourinary: Negative for: Dysuria Musculoskeletal: Negative for: Neck Pain, Shoulder Pain, Arm Pain Neurological: Negative for: Weakness, Numbness, Incoordination, Change in Speech , Confusion, Seizures Psych: Negative for: Anxiety, Depression Physical Exam - Physical Exam Appears: Non-toxic, No Acute Distress Skin: Normal Color, Warm, Dry Head: Atraumatic, Normacephalic Eye(s): bilateral: Normal Inspection, PERRL, EOMI Ear(s): Bilateral: Normal Oral Mucosa: Moist Tongue: Normal Appearing Lips: Normal Appearing Teeth: Normal Dentition Gingiva: Normal Appearing Throat: Normal Neck: Normal, Normal ROM Chest: Symmetrical Cardiovascular: Rhythm Regular, No Murmur Respiratory: Normal Breath Sounds, No Rales, No Rhonchi, No Wheezing Gastrointestinal/Abdominal: Bowel Sounds, No Tenderness, No Distention Back: Normal Inspection Extremity: Normal ROM Extremity: Bilateral: Atraumatic, Normal Color And Temperature, Normal ROM Neurological/Psych: Oriented x3, Normal Speech Gait: Steady ED Course And Treatment - Laboratory Results Result Diagrams: 01/12/18 19:19 01/12/18 19:19 ECG: Interpreted By Me ECG Rhythm: Sinus Rhythm (83 bpm) O2 Sat by Pulse Oximetry: 99 (RA) Pulse Ox Interpretation: Normal Critical Care Time - Critical Care Note Total Time (in mins): 35 Documented critical care: time excludes all time spent performing seperately billable procedures. Medical Decision Making Medical Decision Making: Impression: 77 y/o female with c/p, SOB and bleeding with BM Plan: --EKG --B-Type --CMP --Lipase --Lipid Panel --Troponin I --CBC --Chest X-Ray --Trandate 20 mg IV --UA 2032-- contacted PCP. Stress Echo reviewed. Will admit. troponi nneg .bnp not elevated. will treat BP with vasotec 1.25 mg IVP Disposition Discussed With Dr.: Franck Hoffman Doctor Will See Patient In The: Hospital Counseled Patient/Family Regarding: Diagnosis - Disposition Disposition: TRANSF TO SNF Disposition Time: 21:18 Condition: FAIR Forms: [employer] ([place]) - Clinical Impression Clinical Impression: Chest pain syndrome, Chest pain, ACS (acute coronary syndrome), CHF ( congestive heart failure), Hemorrhoids, Hypertensive urgency, malignant - PA / ORDER ENTRY SPECIALIST / Resident Statement MD/DO has reviewed & agrees with the documentation as recorded. - Scribe Statement The provider has reviewed the documentation as recorded by the Scribe (Osiris Herron) Provider Attestation: All medical record entries made by the Scribe were at my direction and personally dictated by me. I have reviewed the chart and agree that the record accurately reflects my personal performance of the history, physical exam, medical decision making, and the department course for this patient. I have also personally directed, reviewed, and agree with the discharge instructions and disposition.
[2018-01-12] MEDS ORDERED: Labetalol 25mg/5ml Syringe IVP STA (20:36)
[2018-01-12 20:39] LABS: LDL CHOLESTEROL 78 mg/dL (0-129)
[2018-01-12] MEDS ORDERED: Enalaprilat 2.5 MG/2 ML IV STA (21:18)
[2018-01-12] MEDS ORDERED: Enalaprilat 2.5 MG/2 ML ONE (22:07)
[2018-01-13 07:09] LABS: CK-MB 0.82 ng/mL (0.0-3.38)
--- NOTE | 2018-01-13 09:47 | CP.PCM.CON ---
<Kika Jimenez - Last Filed: 01/13/18 17:59> History of Present Illness - History of Present Illness History of Present Illness: Cardiology Consult Note - Dr Mckenna Patient is a 77 year old female with past medical history of CAD s/p Stent, Peripheral Vascular Disease, Hypertension, Impaired glucose tolerance, High cholesterol who presented to the emergency dept for chest pain and shortness of breath. Patients daughter is at the bedside supplementing the history. States that the patient was having bloody bowel movements intermittently since last Saturday. Patient was scheduled for outpatient colonoscopy on Saturday however she had two bloody bowel movements which prompted ED visit. On arrival, BP was found to be 219/101. Patient is complaint with medications. At this time she denies chest pain and shortness of breath. Per nursing, patient had another bloody bowel movement this morning. Allergies: Tramadol, PCN, CT contrast, Ticagrelor Medical Hx: CAD s/p Stent, Loop recorder device, Peripheral Vascular Disease, Hypertension, Impaired glucose tolerance, High cholesterol Surgical Hx: Hiatal hernia repair, cholecystectomy, Cardiac ablation for SVT, Left leg vascular stent, 4 cardiac stents Family Hx: Mother - HTN, PVD, Brother - Lung cancer (), Brother - Epilepsy, Brother -HTN, sleep apnea, Sister - HTN, PVD Social Hx: Denies alcohol, tobacco, drug use Past Patient History - Past Medical History & Family History Past Medical History?: Yes - Past Social History Smoking Status: Never Smoked - CARDIAC Hx Atrial Fibrillation: Yes Hx Cardia Arrhythmia: Yes (SVT, A-FIB) Hx Hypercholesterolemia: Yes Hx Hypertension: Yes Hx Pacemaker: No - PULMONARY Hx Sleep Apnea: Yes - NEUROLOGICAL Hx Transient Ischemic Attacks (TIA): Yes (MULTIPLE; LAST ONE 2013) - HEENT Hx HEENT Problems: No - RENAL Hx Chronic Kidney Disease: No - ENDOCRINE/METABOLIC Hx Endocrine Disorders: No Hx Diabetes Mellitus Type 2: Yes - HEMATOLOGICAL/ONCOLOGICAL Hx Anemia: Yes - INTEGUMENTARY Hx Dermatological Problems: No - MUSCULOSKELETAL/RHEUMATOLOGICAL Hx Arthritis: Yes Hx Falls: No Hx Fractures: Yes - GASTROINTESTINAL Hx Gastrointestinal Disorders: Yes Hx Gastroesophageal Reflux: Yes Hx Hemorrhoids: Yes Hx Ulcer: Yes - GENITOURINARY/GYNECOLOGICAL Hx Genitourinary Disorders: No - PSYCHIATRIC Hx Anxiety: Yes Hx Depression: Yes Hx Substance Use: No - SURGICAL HISTORY Hx Cholecystectomy: Yes Hx Coronary Stent: Yes (X4) - ANESTHESIA Hx Anesthesia: Yes Hx Anesthesia Reactions: No Hx Malignant Hyperthermia: No Has any member of the family had a problem w/ anesthesia?: No Meds Allergies/Adverse Reactions: Allergies Allergy/AdvReac Type Severity Reaction Status Date / Time tramadol Allergy Severe SWELLING Verified 01/12/18 17:49 Penicillins Allergy Intermediate RASH Verified 01/12/18 17:49 ticagrelor [From BRILINTA] Allergy Intermediate RASH Verified 01/12/18 17:49 chamonile Allergy Severe ANAPHYLAXIS Uncoded 01/12/18 17:49 ct contrast Allergy Severe SWELLING Uncoded 01/12/18 17:49 - Medications Medications: Current Medications Alprazolam (Xanax) 0.5 mg PO BID [facility] Last Admin: 01/12/18 22:17 Dose: 0.5 mg Aspirin (Ecotrin) 81 mg PO DAILY [facility] Diltiazem HCl (Cardizem Cd) 180 mg PO DAILY [facility] Gabapentin (Neurontin) 400 mg PO BID [facility] Sodium Chloride (Sodium Chloride 0.9%) 1,000 mls @ 100 mls/hr IV .Q10H [facility] Losartan Potassium (Cozaar) 50 mg PO DAILY [facility] Losartan Potassium (Cozaar) 25 mg PO HS [facility] Last Admin: 01/12/18 22:17 Dose: 25 mg Multivitamins (Hexavitamin) 1 tab PO DAILY [facility] Pantoprazole Sodium (Protonix Ec Tab) 40 mg PO DAILY [facility] Ranolazine (Ranexa) 500 mg PO DAILY [facility] Rosuvastatin Calcium (Crestor) 5 mg PO HS [facility] Last Admin: 01/12/18 22:17 Dose: 5 mg Physical Exam - Constitutional Appears: Well, No Acute Distress - Head Exam Head Exam: ATRAUMATIC, NORMAL INSPECTION - Eye Exam Eye Exam: EOMI, Normal appearance - Respiratory Exam Respiratory Exam: NORMAL BREATHING PATTERN - Cardiovascular Exam Cardiovascular Exam: REGULAR RHYTHM, +S1, +S2 - GI/Abdominal Exam GI & Abdominal Exam: Soft. absent: Normal Bowel Sounds, Tenderness - Extremities Exam Extremities exam: Positive for: normal inspection, pedal pulses present - Neurological Exam Neurological exam: Alert, Oriented x3 - Psychiatric Exam Psychiatric exam: Normal Affect, Normal Mood - Skin Skin Exam: Normal Color, Warm Results - Vital Signs Recent Vital Signs: Last Vital Signs Temp 98 F 01/13/18 04:00 Pulse 61 08/20/18 04:00 Resp 18 01/13/18 04:00 BP 141/77 01/13/18 04:00 Pulse Ox 98 01/13/18 04:00 - Labs Result Diagrams: 01/13/18 10:20 01/12/18 19:19 Labs: Laboratory Results - last 24 hr 01/12/18 01/12/18 01/12/18 19:19 19:19 19:45 WBC 7.1 RBC 3.85 Hgb 11.3 Hct 33.6 L MCV 87.3 MCH 29.4 MCHC 33.7 RDW 13.9 Plt Count 307 MPV 7.5 Neut % (Auto) 54.7 Lymph % (Auto) 34.5 [place] % (Auto) 7.4 Eos % (Auto) 2.8 Baso % (Auto) 0.6 Neut # (Auto) 3.9 Lymph # (Auto) 2.4 [place] # (Auto) 0.5 Eos # (Auto) 0.2 Baso # (Auto) 0.0 Sodium 141 Potassium 4.2 Chloride 105 Carbon Dioxide 24 Anion Gap 16 BUN 22 H Creatinine 0.9 Est GFR ( Amer) > 60 Est GFR (Non-Af Amer) > 60 Random Glucose 99 Calcium 9.1 Total Bilirubin 0.3 AST 15 ALT 26 Alkaline Phosphatase 126 Total Creatine Kinase CK-MB (Mass) Troponin I < 0.0120 NT-Pro-B Natriuret Pep 65.5 Total Protein 6.9 Albumin 4.0 Globulin 2.9 Albumin/Globulin Ratio 1.4 Triglycerides 171 H D Cholesterol 153 LDL Cholesterol Direct 78 HDL Cholesterol 43 Lipase 64 Urine Color Yellow Urine Clarity Clear Urine pH 5.0 Ur Specific [place] 1.011 Urine Protein Negative Urine Glucose (UA) Normal Urine Ketones Negative Urine Blood Negative Urine Nitrate Negative Urine Bilirubin Negative Urine Urobilinogen Normal Ur Leukocyte Esterase Neg Urine WBC (Auto) < 1 Urine RBC (Auto) 1 Ur Squamous Epith Cells < 1 01/13/18 06:49 WBC RBC Hgb Hct MCV MCH MCHC RDW Plt Count MPV Neut % (Auto) Lymph % (Auto) [place] % (Auto) Eos % (Auto) Baso % (Auto) Neut # (Auto) Lymph # (Auto) [place] # (Auto) Eos # (Auto) Baso # (Auto) Sodium Potassium Chloride Carbon Dioxide Anion Gap BUN Creatinine Est GFR ( Amer) Est GFR (Non-Af Amer) Random Glucose Calcium Total Bilirubin AST ALT Alkaline Phosphatase Total Creatine Kinase 27 L CK-MB (Mass) 0.82 Troponin I < 0.0120 NT-Pro-B Natriuret Pep Total Protein Albumin Globulin Albumin/Globulin Ratio Triglycerides Cholesterol LDL Cholesterol Direct HDL Cholesterol Lipase Urine Color Urine Clarity Urine pH Ur Specific [place] Urine Protein Urine Glucose (UA) Urine Ketones Urine Blood Urine Nitrate Urine Bilirubin Urine Urobilinogen Ur Leukocyte Esterase Urine WBC (Auto) Urine RBC (Auto) Ur Squamous Epith Cells Assessment & Plan - Assessment and Plan (Free Text) Assessment: A/P: Patient is a 77 year old female with past medical history of CAD s/p Stent , Peripheral Vascular Disease, Hypertension, Impaired glucose tolerance, High cholesterol with GI bleed, chest pain and shortness of breath. GI bleed -Stool occult positive -F/U Bleeding scan -Diet NPO -Monitor stools -GI on consult, help appreciated Chest pain r/o ACS -Troponins negative x 3 -F/U echocardiogram -Last echo showed borderline concentric LVH, normal EF -Last stress test 02/2017 showed moderate sized fixed inferior defect, no stress induced ischemia -CXR: mild venous congestion. Patchy increased markings at both lung bases. Blunting of left costophrenic angle. Elevated and mamillated right hemidiaphragm with lobulated opacity in the right lung base. Cardiomegaly. -Will hold ASA 81mg PO daily in light of GI bleed -Continue Crestor 5mg PO HS Hypertension -Continue Cardizem 180mg PO daily -Cozaar 50mg PO daily Cozaar 25mg PO HS Plan to be discussed with Dr Bala Jimenez DO PGY-2 <Rojas Mckenna - Last Filed: 01/13/18 20:01> Meds - Medications Medications: Current Medications Alprazolam (Xanax) 0.5 mg PO BID [facility] Last Admin: 01/13/18 18:21 Dose: 0.5 mg Aspirin (Ecotrin) 81 mg PO DAILY [facility] Last Admin: 01/13/18 10:23 Dose: Not Given Diltiazem HCl (Cardizem Cd) 180 mg PO DAILY [facility] Last Admin: 01/13/18 10:21 Dose: 180 mg Gabapentin (Neurontin) 400 mg PO BID [facility] Last Admin: 01/13/18 18:21 Dose: 400 mg Sodium Chloride (Sodium Chloride 0.9%) 1,000 mls @ 100 mls/hr IV .Q10H [facility] Last Admin: 01/13/18 18:21 Dose: 100 mls/hr Losartan Potassium (Cozaar) 50 mg PO DAILY [facility] Last Admin: 01/13/18 10:21 Dose: 50 mg Losartan Potassium (Cozaar) 25 mg PO HS [facility] Last Admin: 01/12/18 22:17 Dose: 25 mg Multivitamins (Hexavitamin) 1 tab PO DAILY [facility] Last Admin: 01/13/18 10:20 Dose: 1 tab Pantoprazole Sodium (Protonix Ec Tab) 40 mg PO DAILY [facility] Last Admin: 01/13/18 10:22 Dose: 40 mg Polyethylene Glycol/Electrolytes (Golytely) 4,000 ml PO ONCE ONE Stop: 01/13/18 20:01 Last Admin: 01/13/18 19:10 Dose: 4,000 ml Ranolazine (Ranexa) 500 mg PO DAILY [facility] Last Admin: 01/13/18 10:20 Dose: 500 mg Rosuvastatin Calcium (Crestor) 5 mg PO [facility] Last Admin: 01/12/18 22:17 Dose: 5 mg Results - Vital Signs Recent Vital Signs: Last Vital Signs Temp 97.7 F 01/13/18 17:20 Pulse 75 01/13/18 17:20 Resp 20 01/13/18 17:20 BP 178/77 H 01/13/18 17:20 Pulse Ox 96 01/13/18 17:20 - Labs Result Diagrams: 01/13/18 10:20 01/12/18 19:19 Labs: Laboratory Results - last 24 hr 01/12/18 01/13/18 01/13/18 19:19 06:49 10:20 WBC 6.8 RBC 3.85 Hgb 11.4 Hct 33.6 L MCV 87.2 MCH 29.6 MCHC 34.0 RDW 14.2 Plt Count 290 MPV 7.3 Neut % (Auto) 59.7 Lymph % (Auto) 29.3 [place] % (Auto) 7.1 Eos % (Auto) 3.2 Baso % (Auto) 0.7 Neut # (Auto) 4.1 Lymph # (Auto) 2.0 [place] # (Auto) 0.5 Eos # (Auto) 0.2 Baso # (Auto) 0.1 Total Creatine Kinase 27 L CK-MB (Mass) 0.82 Troponin I < 0.0120 LDL Cholesterol Direct 78 Blood Type Antibody Screen 01/13/18 01/13/18 13:54 14:14 WBC RBC Hgb Hct MCV MCH MCHC RDW Plt Count MPV Neut % (Auto) Lymph % (Auto) [place] % (Auto) Eos % (Auto) Baso % (Auto) Neut # (Auto) Lymph # (Auto) [place] # (Auto) Eos # (Auto) Baso # (Auto) Total Creatine Kinase 38 CK-MB (Mass) 0.85 Troponin I < 0.0120 LDL Cholesterol Direct Blood Type O POSITIVE Antibody Screen Negative Assessment & Plan - Assessment and Plan (Free Text) Assessment: Patient seen and evaluated oersonally by ak Plan of care d/w the medical clerk and as documented
[2018-01-13] MEDS: Ranolazine 500 mg Extended Release Tablets PO SCH (10:20)
[2018-01-13] MEDS: Multiple Vitamins Tab PO SCH (10:20)
[2018-01-13] MEDS: diltiaZEM 180 mg/24 Hours CD Cap PO SCH (10:21)
[2018-01-13] MEDS: Pantoprazole 40 mg EC Tab PO SCH (10:22)
[2018-01-13 10:27] LABS: BASO # 0.1 K/uL (0.0-0.2); BASO % 0.7 % (0.0-2.0); EOS # 0.2 K/uL (0.0-0.7); EOS % 3.2 % (0.0-4.0); HEMOGLOBIN 11.4 g/dL (11.0-16.0); LYMPH % 29.3 % (20.0-40.0); MEAN CELL VOLUME 87.2 fL (81.0-99.0); MEAN CORPUSCULAR HEMOGLOBIN 29.6 pg (27.0-31.0); MEAN PLATELET VOLUME 7.3 fL (7.2-11.7); MONO # 0.5 K/uL (0.0-0.8); MONO % 7.1 % (0.0-10.0); NEUT # 4.1 K/uL (1.8-7.0); NEUT % 59.7 % (50.0-75.0); RBC 3.85 Mil/uL (3.80-5.20); RED CELL DISTRIBUTION WIDTH 14.2 % (11.5-14.5); WHITE BLOOD COUNT 6.8 K/uL (4.8-10.8)
--- NOTE | 2018-01-13 11:29 | RAD ---
Chest x-ray single frontal view History: Chest pain. Comparison: 03/04/2017 Findings: Mild venous congestion. Patchy increased markings at both lung bases. Blunting of the left costophrenic angle. Elevated and mamillated right hemidiaphragm with lobulated opacity in the right lung base. Cardiomegaly. Enlarged ectatic aorta. Surgical clips project over the heart and left upper abdomen. Degenerative changes in the spine. Right peritracheal opacity likely arose from prominent vasculature. Impression Mild venous congestion. Patchy increased markings at both lung bases. Blunting of the left costophrenic angle. Elevated and mamillated right hemidiaphragm with lobulated opacity in the right lung base. Cardiomegaly. Enlarged ectatic aorta. Surgical clips project over the heart and left upper abdomen. Degenerative changes in the spine. Right peritracheal opacity likely arose from prominent vasculature.
[2018-01-13 14:44] LABS: CK-MB 0.85 ng/mL (0.0-3.38)
[2018-01-13] MEDS: Sodium Chloride 0.9% 1,000 ML IV SCH ×2 (14:46→18:21)
--- NOTE | 2018-01-13 16:03 | NM ---
Date of service: 01/13/2018 PROCEDURE: Nuclear medicine gastrointestinal bleeding scan. HISTORY: Bloody Stool COMPARISON: None available. TECHNIQUE: 4ccof patient blood was withdrawn and mixed with 24.1mCi of technetium Ultratag. Images of the abdomen and pelvis were obtained in the anterior and posterior projection at 1 min intervals over a period of 60 minutes. FINDINGS: No abnormal extravasation of tracer was observed throughout the exam to indicate active bleeding within or outside the gastrointestinal tract. Physiologic activity was seen in the heart, liver, spleen and blood vessels. IMPRESSION: No evidence of active gastrointestinal bleeding.
--- NOTE | 2018-01-13 18:08 | CP.PCM.CON ---
History of Present Illness - History of Present Illness History of Present Illness: 77 yo W female well known to me for many years presented to my office last with dark red stool per rectum and no CP, SOB or LOC. A hgb done in office came back at 11.4 and she was scheduled to have a colonoscopy as an outpatient on 01/15. She was admitted last evening with continued rectal bleeding now more bright red. Again her hgb remains 11. She had a colonoscopy in 2009 that showed internal hemorrhoids. She has know CAD and PVD and had been on ASA that was held last week when she presented with bleedingt. No straining on Colace and prunes daily at home. Case discussed with Dr Hoffman and she is cleared for prep and colonoscopy in am. Review of Systems - Cardiovascular Cardiovascular: absent: Chest Pain, Diaphoresis, Dyspnea, Edema - Respiratory Respiratory: absent: Cough, Snoring - Gastrointestinal Gastrointestinal: As Per HPI, Hematochezia. absent: Constipation, Diarrhea, Heartburn, Melena, Nausea, Vomiting Past Patient History - Past Medical History & Family History Past Medical History?: Yes - Past Social History Smoking Status: Never Smoked Alcohol: None Drugs: Denies Home Situation {Lives}: Alone - CARDIAC Hx Atrial Fibrillation: Yes Hx Cardia Arrhythmia: Yes (SVT, A-FIB) Hx Circulatory Problems: Yes (PVD has femoral stent) Hx Hypercholesterolemia: Yes Hx Hypertension: Yes Hx Pacemaker: No - PULMONARY Hx Sleep Apnea: Yes - NEUROLOGICAL Hx Transient Ischemic Attacks (TIA): Yes (MULTIPLE; LAST ONE 2013) - HEENT Hx HEENT Problems: No - RENAL Hx Chronic Kidney Disease: No - ENDOCRINE/METABOLIC Hx Endocrine Disorders: No Hx Diabetes Mellitus Type 2: Yes - HEMATOLOGICAL/ONCOLOGICAL Hx Anemia: Yes Hx Cirrhosis: No Hx Hepatitis A: No Hx Hepatitis B: No Hx Hepatitis C: No Hx Human Immunodeficiency Virus (HIV): No - INTEGUMENTARY Hx Dermatological Problems: No - MUSCULOSKELETAL/RHEUMATOLOGICAL Hx Arthritis: Yes Hx Falls: No Hx Fractures: Yes - GASTROINTESTINAL Hx Gastrointestinal Disorders: Yes Hx Bowel Surgery: No Hx Clostridium Difficile: No Hx Colitis: No Hx Colostomy: No Hx Constipation: Yes Hx Crohn's Disease: No Hx Diarrhea: No Hx Diverticulitis: No (Diverticulosis) Hx Esophageal Varices: No Hx Fatty Liver Disease: No Hx Gall Bladder Disease: No Hx Gastritis: Yes Hx Gastroesophageal Reflux: Yes Hx Hemorrhoids: Yes Hx Ileostomy: No Hx Irritable Bowel: No Hx Liver Failure: No Hx Nausea: No Hx Pancreatitis: No HX Swallowing Problems: No Hx Ulcer: Yes Hx Vomiting: No - GENITOURINARY/GYNECOLOGICAL Hx Genitourinary Disorders: No - PSYCHIATRIC Hx Anxiety: Yes Hx Depression: Yes Hx Substance Use: No - SURGICAL HISTORY Hx Cholecystectomy: Yes Hx Coronary Stent: Yes (X4) - ANESTHESIA Hx Anesthesia: Yes Hx Anesthesia Reactions: No Hx Malignant Hyperthermia: No Has any member of the family had a problem w/ anesthesia?: No Meds Allergies/Adverse Reactions: Allergies Allergy/AdvReac Type Severity Reaction Status Date / Time tramadol Allergy Severe SWELLING Verified 01/12/18 17:49 Penicillins Allergy Intermediate RASH Verified 01/12/18 17:49 ticagrelor [From BRILINTA] Allergy Intermediate RASH Verified 01/12/18 17:49 chamonile Allergy Severe ANAPHYLAXIS Uncoded 01/12/18 17:49 ct contrast Allergy Severe SWELLING Uncoded 01/12/18 17:49 - Medications Medications: Current Medications Alprazolam (Xanax) 0.5 mg PO BID [facility] Last Admin: 01/13/18 10:21 Dose: 0.5 mg Aspirin (Ecotrin) 81 mg PO DAILY [facility] Last Admin: 01/13/18 10:23 Dose: Not Given Diltiazem HCl (Cardizem Cd) 180 mg PO DAILY [facility] Last Admin: 01/13/18 10:21 Dose: 180 mg Gabapentin (Neurontin) 400 mg PO BID [facility] Last Admin: 01/13/18 10:20 Dose: 400 mg Sodium Chloride (Sodium Chloride 0.9%) 1,000 mls @ 100 mls/hr IV .Q10H [facility] Last Admin: 01/13/18 14:46 Dose: 100 mls/hr Losartan Potassium (Cozaar) 50 mg PO DAILY [facility] Last Admin: 01/13/18 10:21 Dose: 50 mg Losartan Potassium (Cozaar) 25 mg PO HS [facility] Last Admin: 01/12/18 22:17 Dose: 25 mg Multivitamins (Hexavitamin) 1 tab PO DAILY [facility] Last Admin: 01/13/18 10:20 Dose: 1 tab Pantoprazole Sodium (Protonix Ec Tab) 40 mg PO DAILY [facility] Last Admin: 01/13/18 10:22 Dose: 40 mg Ranolazine (Ranexa) 500 mg PO DAILY [facility] Last Admin: 01/13/18 10:20 Dose: 500 mg Rosuvastatin Calcium (Crestor) 5 mg PO HS [facility] Last Admin: 01/12/18 22:17 Dose: 5 mg Physical Exam - Constitutional Appears: No Acute Distress - Head Exam Head Exam: ATRAUMATIC, NORMOCEPHALIC - Eye Exam Eye Exam: EOMI, PERRL - Respiratory Exam Respiratory Exam: Clear to Auscultation Bilateral, NORMAL BREATHING PATTERN - Cardiovascular Exam Cardiovascular Exam: REGULAR RHYTHM, +S1 - GI/Abdominal Exam GI & Abdominal Exam: Normal Bowel Sounds, Soft. absent: Distended, Firm, Organomegaly, Rebound, Rigid, Tenderness - Rectal Exam Rectal Exam: NORMAL INSPECTION Additional comments: No stool in vault. No overt blood. - Extremities Exam Extremities exam: Positive for: normal inspection. Negative for: pedal edema - Neurological Exam Neurological exam: Alert, Oriented x3 - Psychiatric Exam Psychiatric exam: Normal Affect, Normal Mood - Skin Skin Exam: Dry, Warm Results - Vital Signs Recent Vital Signs: Last Vital Signs Temp 97.7 F 01/13/18 17:20 Pulse 75 01/13/18 17:20 Resp 20 01/13/18 17:20 BP 178/77 H 01/13/18 17:20 Pulse Ox 96 01/13/18 17:20 - Labs Result Diagrams: 01/13/18 10:20 01/12/18 19:19 Labs: Laboratory Results - last 24 hr 01/12/18 01/12/18 01/12/18 19:19 19:19 19:45 WBC 7.1 RBC 3.85 Hgb 11.3 Hct 33.6 L MCV 87.3 MCH 29.4 MCHC 33.7 RDW 13.9 Plt Count 307 MPV 7.5 Neut % (Auto) 54.7 Lymph % (Auto) 34.5 Real % (Auto) 7.4 Eos % (Auto) 2.8 Baso % (Auto) 0.6 Neut # (Auto) 3.9 Lymph # (Auto) 2.4 Real # (Auto) 0.5 Eos # (Auto) 0.2 Baso # (Auto) 0.0 Sodium 141 Potassium 4.2 Chloride 105 Carbon Dioxide 24 Anion Gap 16 BUN 22 H Creatinine 0.9 Est GFR ( Amer) > 60 Est GFR (Non-Af Amer) > 60 Random Glucose 99 Calcium 9.1 Total Bilirubin 0.3 AST 15 ALT 26 Alkaline Phosphatase 126 Total Creatine Kinase CK-MB (Mass) Troponin I < 0.0120 NT-Pro-B Natriuret Pep 65.5 Total Protein 6.9 Albumin 4.0 Globulin 2.9 Albumin/Globulin Ratio 1.4 Triglycerides 171 H D Cholesterol 153 LDL Cholesterol Direct 78 HDL Cholesterol 43 Lipase 64 Urine Color Yellow Urine Clarity Clear Urine pH 5.0 Ur Specific Thurston 1.011 Urine Protein Negative Urine Glucose (UA) Normal Urine Ketones Negative Urine Blood Negative Urine Nitrate Negative Urine Bilirubin Negative Urine Urobilinogen Normal Ur Leukocyte Esterase Neg Urine WBC (Auto) < 1 Urine RBC (Auto) 1 Ur Squamous Epith Cells < 1 Blood Type Antibody Screen 01/13/18 01/13/18 01/13/18 06:49 10:20 13:54 WBC 6.8 RBC 3.85 Hgb 11.4 Hct 33.6 L MCV 87.2 MCH 29.6 MCHC 34.0 RDW 14.2 Plt Count 290 MPV 7.3 Neut % (Auto) 59.7 Lymph % (Auto) 29.3 Real % (Auto) 7.1 Eos % (Auto) 3.2 Baso % (Auto) 0.7 Neut # (Auto) 4.1 Lymph # (Auto) 2.0 Real # (Auto) 0.5 Eos # (Auto) 0.2 Baso # (Auto) 0.1 Sodium Potassium Chloride Carbon Dioxide Anion Gap BUN Creatinine Est GFR ( Amer) Est GFR (Non-Af Amer) Random Glucose Calcium Total Bilirubin AST ALT Alkaline Phosphatase Total Creatine Kinase 27 L CK-MB (Mass) 0.82 Troponin I < 0.0120 NT-Pro-B Natriuret Pep Total Protein Albumin Globulin Albumin/Globulin Ratio Triglycerides Cholesterol LDL Cholesterol Direct HDL Cholesterol Lipase Urine Color Urine Clarity Urine pH Ur Specific Thur[place] Urine Protein Urine Glucose (UA) Urine Ketones Urine Blood Urine Nitrate Urine Bilirubin Urine Urobilinogen Ur Leukocyte Esterase Urine WBC (Auto) Urine RBC (Auto) Ur Squamous Epith Cells Blood Type O POSITIVE Antibody Screen Negative 01/13/18 14:14 WBC RBC Hgb Hct MCV MCH MCHC RDW Plt Count MPV Neut % (Auto) Lymph % (Auto) Real % (Auto) Eos % (Auto) Baso % (Auto) Neut # (Auto) Lymph # (Auto) Real # (Auto) Eos # (Auto) Baso # (Auto) Sodium Potassium Chloride Carbon Dioxide Anion Gap BUN Creatinine Est GFR ( Amer) Est GFR (Non-Af Amer) Random Glucose Calcium Total Bilirubin AST ALT Alkaline Phosphatase Total Creatine Kinase 38 CK-MB (Mass) 0.85 Troponin I < 0.0120 NT-Pro-B Natriuret Pep Total Protein Albumin Globulin Albumin/Globulin Ratio Triglycerides Cholesterol LDL Cholesterol Direct HDL Cholesterol Lipase Urine Color Urine Clarity Urine pH Ur Specific [place] Urine Protein Urine Glucose (UA) Urine Ketones Urine Blood Urine Nitrate Urine Bilirubin Urine Urobilinogen Ur Leukocyte Esterase Urine WBC (Auto) Urine RBC (Auto) Ur Squamous Epith Cells Blood Type Antibody Screen Assessment & Plan (1) Hematochezia Assessment and Plan: Patient with 5-6 day h/o of hematochezia which in the absence of drop in H/H is likely to be hemorrhoidal. She ws on ASA therapy until last week. Bleeding scan ordered earlier today was negative and H/H has remained in 11 range. r/o diverticular bleeding, occult Ca, colon polyp as she has not been scoped in 8-9 years. Clear liquid diet Monitor for active bleeding Colonoscopy tomorrow am after vigorous prep IV fluids Status: Acute (2) CAD (coronary artery disease) Assessment and Plan: Cleared for colonoscopy\ ASA on hold Status: Acute (3) Gastroesophageal reflux disease Assessment and Plan: Doubt UGI bleeding. Continue H2B as symptom free as outpatient. Status: Chronic
[2018-01-13] MEDS ORDERED: Bisacodyl 5mg EC Tab PO ONE (19:00)
[2018-01-13] MEDS ORDERED: Peg-Electrolyte Oral Soln 4L (Golytely) PO ONE (20:00)
[2018-01-14 02:23] LABS: ALB/GLOB RATIO 1.3 (1.0-2.1); ALBUMIN 3.6 g/dL (3.5-5.0); ALT/SGPT 29 U/L (9-52); AST/SGOT 38 U/L (14-36); BLOOD UREA NITROGEN 15 mg/dL (7-17); CALCIUM 8.6 mg/dl (8.6-10.4); GFR NON-AFRICAN AMERICAN > 60
[2018-01-14 02:31] LABS: CK-MB 0.92 ng/mL (0.0-3.38)
[2018-01-14] MEDS: Sodium Chloride 0.9% 1,000 ML IV SCH ×3 (05:48→19:22)
[2018-01-14] MEDS ORDERED: Propofol 10 mg/ml Inj (20 ML) ONE (08:29)
[2018-01-14 08:36] LABS: HEMOGLOBIN 11.3 g/dL (11.0-16.0); MEAN CELL VOLUME 88.2 fL (81.0-99.0); MEAN CORPUSCULAR HEMOGLOBIN 30.2 pg (27.0-31.0); MEAN CORPUSCULAR HGB CONC 34.2 g/dL (33.0-37.0); MEAN PLATELET VOLUME 7.4 fL (7.2-11.7); RBC 3.73 Mil/uL (3.80-5.20); RED CELL DISTRIBUTION WIDTH 13.9 % (11.5-14.5); WHITE BLOOD COUNT 6.2 K/uL (4.8-10.8)
--- NOTE | 2018-01-14 08:58 | CP.PCM.PN ---
Subjective - Date & Time of Evaluation Date of Evaluation: 01/14/18 Time of Evaluation: 08:56 - Subjective Subjective: Colonoscopy: Recently bleeding and engorged internal hemorrhoids Ochoa-diverticulosis without recent bleeding Rec: Discharge today if stable OK to resume ASA today Sitz baths and Anusol-HC supp BID as needed High fiber diet and Metamucil, Colace to avoid straining as previously instructed Follow up with me in office in two weeks Advance diet as tolerated. Thank you Objective - Vital Signs/Intake and Output Vital Signs (last 24 hours): Temp Pulse Resp BP Pulse Ox 98.2 F 73 20 147/78 96 01/14/18 08:23 01/14/18 08:23 01/14/18 08:23 01/14/18 08:23 01/14/18 08:23 Intake and Output: 01/14/18 01/14/18 06:59 18:59 Intake Total 0 Balance 0 - Medications Medications: Current Medications Alprazolam (Xanax) 0.5 mg PO BID [facility] Last Admin: 01/13/18 18:21 Dose: 0.5 mg Aspirin (Ecotrin) 81 mg PO DAILY [facility] Last Admin: 01/13/18 10:23 Dose: Not Given Diltiazem HCl (Cardizem Cd) 180 mg PO DAILY [facility] Last Admin: 01/13/18 10:21 Dose: 180 mg Gabapentin (Neurontin) 400 mg PO BID [facility] Last Admin: 01/13/18 18:21 Dose: 400 mg Sodium Chloride (Sodium Chloride 0.9%) 1,000 mls @ 100 mls/hr IV .Q10H [facility] Last Admin: 01/14/18 05:48 Dose: Not Given Losartan Potassium (Cozaar) 50 mg PO DAILY [facility] Last Admin: 01/13/18 10:21 Dose: 50 mg Losartan Potassium (Cozaar) 25 mg PO HS [facility] Last Admin: 01/13/18 21:04 Dose: 25 mg Multivitamins (Hexavitamin) 1 tab PO DAILY [facility] Last Admin: 01/13/18 10:20 Dose: 1 tab Pantoprazole Sodium (Protonix Ec Tab) 40 mg PO DAILY [facility] Last Admin: 01/13/18 10:22 Dose: 40 mg Ranolazine (Ranexa) 500 mg PO DAILY [facility] Last Admin: 01/13/18 10:20 Dose: 500 mg Rosuvastatin Calcium (Crestor) 5 mg PO HS [facility] Last Admin: 01/13/18 21:04 Dose: 5 mg - Labs Labs: 01/14/18 08:29 01/14/18 02:01 Assessment and Plan (1) Hematochezia Status: Acute (2) CAD (coronary artery disease) Status: Acute (3) Gastroesophageal reflux disease Status: Chronic
[2018-01-14] MEDS: diltiaZEM 180 mg/24 Hours CD Cap PO SCH (10:12)
[2018-01-14] MEDS: Multiple Vitamins Tab PO SCH (10:12)
[2018-01-14] MEDS: Pantoprazole 40 mg EC Tab PO SCH (10:12)
[2018-01-14] MEDS: Ranolazine 500 mg Extended Release Tablets PO SCH (10:12)
[2018-01-14] MEDS: Hydrocortisone 2.5% Rectal Cream(30 gm) PR SCH ×2 (15:17→17:05)
[2018-01-14 15:52] VITALS: RESP 20
--- NOTE | 2018-01-14 17:24 | CARD ---
APPROVED REPORT Date of service: 01/14/2018 EXAM: Two-dimensional and M-mode echocardiogram with Doppler and color Doppler. Other Information Quality : GoodRhythm : INDICATION Dizziness and Vertigo Cardiac Disease: CAD Chest Pain RISK FACTORS Hypertension 2D DIMENSIONS IVSd1.0 (0.7-1.1cm)LVDd4.4 (3.9-5.9cm) PWd1.2 (0.7-1.1cm)LVDs2.7 (2.5-4.0cm) FS (%) 39.6 %LVEF (%)70.4 (>50%) M-Mode DIMENSIONS Left Atrium (MM)3.82 (2.5-4.0cm)IVSd1.14 (0.7-1.1cm) Aortic Root3.53 (2.2-3.7cm)LVDd4.84 (4.0-5.6cm) Aortic Cusp Exc.1.94 (1.5-2.0cm)PWd0.97 (0.7-1.1cm) FS (%) 42 %LVDs2.83 (2.0-3.8cm) LVEF (%)72 (>50%) Mitral Valve MV E Xrpxfabm99.0cm/sMV A Vbkfwtao040.1cm/sE/A ratio0.7 TDI E/Lateral E'0.0E/Medial E'0.0 Tricuspid Valve TR Peak [id number]/sTR Peak Gr.[id number] LEFT VENTRICLE The left ventricle is normal size. There is normal left ventricular wall thickness. The left ventricular function is normal. The left ventricular ejection fraction is within the normal range. About 65% No regional wall motion abnormalities noted. Transmitral Doppler flow pattern is Grade I-abnormal relaxation pattern. No left ventricle thrombus noted on this study. There is no ventricular septal defect visualized. There is no left ventricular aneurysm. There is no mass noted in the left ventricle. RIGHT VENTRICLE The right ventricle is normal size. There is normal right ventricular wall thickness. The right ventricular systolic function is normal. ATRIA The left atrial voulmue index is moderately dilated. The right atrium size is normal. The interatrial septum is intact with no evidence for an atrial septal defect. AORTIC VALVE The aortic valve is normal in structure and function. No aortic regurgitation is present. There is no aortic valvular stenosis. There is no aortic valvular vegetation. MITRAL VALVE The mitral valve is normal in structure and function. There is no evidence of mitral valve prolapse. There is no mitral valve stenosis. There is no mitral valve regurgitation noted. TRICUSPID VALVE The tricuspid valve is normal in structure and function. There is no tricuspid valve regurgitation noted. There is no tricuspid valve prolapse or vegetation. There is no tricuspid valve stenosis. PULMONIC VALVE The pulmonary valve is normal in structure and function. There is no pulmonic valvular regurgitation. There is no pulmonic valvular stenosis. GREAT VESSELS The aortic root is normal in size. The ascending aorta is normal in size. The pulmonary artery is normal. The IVC is normal in size and collapses >50% with inspiration. PERICARDIAL EFFUSION The pericardium appears normal. There is no pleural effusion. <Conclusion> The left ventricular function is normal. Transmitral Doppler flow pattern is Grade I-abnormal relaxation pattern. The left atrial voulmue index is moderately dilated. Normal Doppler.
--- NOTE | 2018-01-14 17:42 | CARD ---
APPROVED REPORT Date of service: 01/12/2018 EKG Measurement Heart [id number] <Conclusion> Sinus rhythm with occasional premature ventricular complexes Minimal voltage criteria for LVH, may be normal variant Borderline ECG
--- NOTE | 2018-01-14 19:32 | CP.PCM.PN ---
Subjective - Date & Time of Evaluation Date of Evaluation: 01/13/18 Time of Evaluation: 20:49 - Subjective Subjective: Patient currently stable. In the intensive care unit Closely monitor. On telemetry. No abdominal pain. Tolerating the liquid diet Clinical examination, vital signs elevated blood pressure noted. Clinically abdomen is soft No more active bleeding noted H&H is stable GI bleed, most likely lower GI bleed Awaiting for endoscopy. And colonoscopy She'll follow up Bleeding scan is negative will follow the patient Objective - Vital Signs/Intake and Output Vital Signs (last 24 hours): Temp Pulse Resp BP Pulse Ox 97.6 F 74 20 162/69 H 97 01/14/18 15:00 01/14/18 18:44 01/14/18 15:00 01/14/18 15:00 01/14/18 15:00 Intake and Output: 01/14/18 01/15/18 18:59 06:59 Intake Total 1100 Balance 1100 - Medications Medications: Current Medications Alprazolam (Xanax) 0.5 mg PO BID [facility] Last Admin: 01/14/18 17:04 Dose: 0.5 mg Aspirin (Ecotrin) 81 mg PO DAILY [facility] Last Admin: 01/13/18 10:23 Dose: Not Given Diltiazem HCl (Cardizem Cd) 180 mg PO DAILY [facility] Last Admin: 01/14/18 10:12 Dose: 180 mg Gabapentin (Neurontin) 400 mg PO BID [facility] Last Admin: 01/14/18 17:04 Dose: 400 mg Hydrocortisone (Anusol-Hc) 0 gm RI BID [facility] Last Admin: 01/14/18 17:05 Dose: 1 applic Sodium Chloride (Sodium Chloride 0.9%) 1,000 mls @ 100 mls/hr IV .Q10H [facility] Last Admin: 01/14/18 19:22 Dose: 100 mls/hr Losartan Potassium (Cozaar) 50 mg PO DAILY [facility] Last Admin: 01/14/18 10:12 Dose: 50 mg Losartan Potassium (Cozaar) 25 mg PO HS [facility] Last Admin: 01/13/18 21:04 Dose: 25 mg Multivitamins (Hexavitamin) 1 tab PO DAILY [facility] Last Admin: 01/14/18 10:12 Dose: 1 tab Pantoprazole Sodium (Protonix Ec Tab) 40 mg PO DAILY [facility] Last Admin: 01/14/18 10:12 Dose: 40 mg Ranolazine (Ranexa) 500 mg PO DAILY [facility] Last Admin: 01/14/18 10:12 Dose: 500 mg Rosuvastatin Calcium (Crestor) 5 mg PO [facility] Last Admin: 01/13/18 21:04 Dose: 5 mg - Labs Labs: 01/14/18 08:29 01/14/18 02:01
--- NOTE | 2018-01-14 19:32 | CP.PCM.HP ---
History of Present Illness - History of Present Illness History of Present Illness: Chief complaints: chest pain, rectal bleeding History of present illness: 77 female with a CAD, stent, hypertension, high cholesterolemia, event monitoring, peripheral vascular disease, status post a stent came to the emergency room episodes of shortness of breath, chest pain, rectal bleeding. Patient had a few episodes of bleeding last 1 week. Patient was having fresh bleeding rectally. At the same time she was also noted to have high elevated blood press. She felt some shortness of breath, and the dizziness and weakness. Patient was seen by geology associate as an outpatient, scheduled to have colonoscopy. PMHx: Hypertension, coronary artery disease with stents, hypercholesterolemia, borderline diabetes,, peripheral vascular disease, Surgical Hx: Hiatal hernia repair, cholecystectomy, cardiac ablation for SVT, cardiac stents 2013, left leg vascular stent Family Hx: Father unknown. Mother had a history of hypertension, peripheral arterial disease. One brother had lung cancer and , another brother had epilepsy third brother had hypertension nonobstructive sleep apnea sister had a history peripheral vascular disease and hypertension Social history: Denies alcohol, denies tobacco, denies illicit drug use Allergies: tramadol, Penicillin, CT contrast, ticagrelor Review of system: Denies any chest pain at this time. But the blood pressure is somewhat better now than before. Mild exertional dyspnea noted. Vital signs stable otherwise On examination: Vital signs stable. Chest good air entry regular NONTENDER ABDOMEN SEEN IS ALERT AWAKE ORIENTED 0 FUNCTIONAL NEUROLOGICAL DEFICIT LABS REVIEWED CARDIAC MARKERS patient has a bright rectal bleeding noted ASSESSMENT AND RECOMMENDATION: 77-year-old female with a history of CAD, status post a stent hypertension high cholesterol admitted with the sudden onset of abdominal, chest pain. Elevated blood pressure. Clinical stable at this time. We'll get a cardiology evaluation. We'll place the patient on Protonix. Gastro intestinal evaluation. Bleeding scan ordered. IV fluid. Closely monitor. Will follow-up the patient Acute GI bleed most likely rectal in origin. Diverticular bleeding cannot be ruled out. Monitor H&H and will follow the patient Present on Admission - Present on Admission Any Indicators Present on Admission: No History of DVT/PE: No History of Uncontrolled Diabetes: No Urinary Catheter: No Decubitus Ulcer Present: No Past Patient History - Past Medical History & Family History Past Medical History?: Yes - Past Social History Smoking Status: Never Smoked Alcohol: None Drugs: Denies Home Situation {Lives}: Alone - CARDIAC Hx Hypercholesterolemia: Yes Hx Hypertension: Yes - PULMONARY Hx Sleep Apnea: Yes - NEUROLOGICAL HX Cerebrovascular Accident: Yes (TIA) - HEENT Hx HEENT Problems: No - RENAL Hx Chronic Kidney Disease: No - ENDOCRINE/METABOLIC Hx Diabetes Mellitus Type 2: Yes - HEMATOLOGICAL/ONCOLOGICAL Hx Anemia: Yes Hx Cirrhosis: No Hx Hepatitis A: No Hx Hepatitis B: No Hx Hepatitis C: No Hx Human Immunodeficiency Virus (HIV): No - INTEGUMENTARY Hx Dermatological Problems: No - MUSCULOSKELETAL/RHEUMATOLOGICAL Hx Arthritis: Yes - GASTROINTESTINAL Hx Gastrointestinal Disorders: Yes Hx Bowel Surgery: No Hx Clostridium Difficile: No Hx Colitis: No Hx Colostomy: No Hx Constipation: Yes Hx Crohn's Disease: No Hx Diarrhea: No Hx Diverticulitis: No (Diverticulosis) Hx Esophageal Varices: No Hx Fatty Liver Disease: No Hx Gall Bladder Disease: No Hx Gastritis: Yes Hx Gastroesophageal Reflux: Yes Hx Hemorrhoids: Yes Hx Ileostomy: No Hx Irritable Bowel: No Hx Liver Failure: No Hx Nausea: No Hx Pancreatitis: No HX Swallowing Problems: No Hx Ulcer: Yes Hx Vomiting: No - GENITOURINARY/GYNECOLOGICAL Hx Genitourinary Disorders: No - PSYCHIATRIC Hx Anxiety: Yes Hx Depression: Yes Hx Substance Use: No - SURGICAL HISTORY Hx Cholecystectomy: Yes Hx Coronary Stent: Yes (X4) - ANESTHESIA Hx Anesthesia: Yes Hx Anesthesia Reactions: No Hx Malignant Hyperthermia: No Has any member of the family had a problem w/ anesthesia?: No Meds Allergies/Adverse Reactions: Allergies Allergy/AdvReac Type Severity Reaction Status Date / Time tramadol Allergy Severe SWELLING Verified 01/12/18 17:49 Penicillins Allergy Intermediate RASH Verified 01/12/18 17:49 ticagrelor [From BRILINTA] Allergy Intermediate RASH Verified 01/12/18 17:49 chamonile Allergy Severe ANAPHYLAXIS Uncoded 01/12/18 17:49 ct contrast Allergy Severe SWELLING Uncoded 01/12/18 17:49 Results - Vital Signs Recent Vital Signs: Last Vital Signs Temp 97.6 F 01/14/18 15:00 Pulse 74 01/14/18 18:44 Resp 20 01/14/18 15:00 BP 162/69 H 01/14/18 15:00 Pulse Ox 97 01/14/18 15:00 - Labs Result Diagrams: 01/14/18 08:29 01/14/18 02:01 Labs: Laboratory Results - last 24 hr 01/14/18 01/14/18 02:01 08:29 WBC 6.2 RBC 3.73 L Hgb 11.3 Hct 32.9 L MCV 88.2 MCH 30.2 MCHC 34.2 RDW 13.9 Plt Count 310 MPV 7.4 Sodium 145 Potassium 4.0 Chloride 106 Carbon Dioxide 29 Anion Gap 13 BUN 15 Creatinine 0.9 Est GFR ( Amer) > 60 Est GFR (Non-Af Amer) > 60 Random Glucose 109 H Calcium 8.6 Total Bilirubin 0.3 AST 38 H D ALT 29 Alkaline Phosphatase 95 Total Creatine Kinase 33 CK-MB (Mass) 0.92 Troponin I < 0.0120 Total Protein 6.3 Albumin 3.6 Globulin 2.7 Albumin/Globulin Ratio 1.3
--- NOTE | 2018-01-14 20:51 | CP.PCM.PN ---
Subjective - Date & Time of Evaluation Date of Evaluation: 01/14/18 Time of Evaluation: 20:51 - Subjective Subjective: Patient underwent a colonoscopy today. Significant diverticulosis noted pandiverticulosis No active bleeding Internal hemorrhoids engorged veins noted Patient had no active bleeding, feeling well. Chest pain is negative Clicker examination is unremarkable Will discontinue the IV fluid. Check H&H more tomorrow, if it is stable, discharged, after breakfast tomorrow. Objective - Vital Signs/Intake and Output Vital Signs (last 24 hours): Temp Pulse Resp BP Pulse Ox 97.6 F 74 20 162/69 H 97 01/14/18 15:00 01/14/18 18:44 01/14/18 15:00 01/14/18 15:00 01/14/18 15:00 Intake and Output: 01/14/18 01/15/18 18:59 06:59 Intake Total 1100 Balance 1100 - Medications Medications: Current Medications Alprazolam (Xanax) 0.5 mg PO BID [facility] Last Admin: 01/14/18 17:04 Dose: 0.5 mg Aspirin (Ecotrin) 81 mg PO DAILY [facility] Last Admin: 01/13/18 10:23 Dose: Not Given Diltiazem HCl (Cardizem Cd) 180 mg PO DAILY [facility] Last Admin: 01/14/18 10:12 Dose: 180 mg Gabapentin (Neurontin) 400 mg PO BID [facility] Last Admin: 01/14/18 17:04 Dose: 400 mg Hydrocortisone (Anusol-Hc) 0 gm MA BID [facility] Last Admin: 01/14/18 17:05 Dose: 1 applic Losartan Potassium (Cozaar) 50 mg PO DAILY [facility] Last Admin: 01/14/18 10:12 Dose: 50 mg Losartan Potassium (Cozaar) 25 mg PO [facility] Last Admin: 01/13/18 21:04 Dose: 25 mg Multivitamins (Hexavitamin) 1 tab PO DAILY [facility] Last Admin: 01/14/18 10:12 Dose: 1 tab Pantoprazole Sodium (Protonix Ec Tab) 40 mg PO DAILY [facility] Last Admin: 01/14/18 10:12 Dose: 40 mg Ranolazine (Ranexa) 500 mg PO DAILY [facility] Last Admin: 01/14/18 10:12 Dose: 500 mg Rosuvastatin Calcium (Crestor) 5 mg PO [facility] Last Admin: 01/13/18 21:04 Dose: 5 mg - Labs Labs: 01/14/18 08:29 01/14/18 02:01
[2018-01-15 08:30] VITALS: TEMP 97.6; O2SAT 97
[2018-01-15] MEDS: diltiaZEM 180 mg/24 Hours CD Cap PO SCH (10:45)
[2018-01-15] MEDS: Hydrocortisone 2.5% Rectal Cream(30 gm) PR SCH (10:45)
[2018-01-15] MEDS: Multiple Vitamins Tab PO SCH (10:45)
[2018-01-15] MEDS: Pantoprazole 40 mg EC Tab PO SCH (10:45)
[2018-01-15] MEDS: Ranolazine 500 mg Extended Release Tablets PO SCH (10:45)
[2018-01-15 11:12] VITALS: BP 178/81; PULSE 79
[2018-01-15 12:02] LABS: BASO % 0.5 % (0.0-2.0); EOS # 0.2 K/uL (0.0-0.7); EOS % 3.4 % (0.0-4.0); HEMOGLOBIN 11.2 g/dL (11.0-16.0); LYMPH # 1.7 K/uL (1.0-4.3); LYMPH % 23.9 % (20.0-40.0); MEAN CELL VOLUME 87.5 fL (81.0-99.0); MEAN CORPUSCULAR HEMOGLOBIN 30.2 pg (27.0-31.0); MEAN CORPUSCULAR HGB CONC 34.5 g/dL (33.0-37.0); MEAN PLATELET VOLUME 7.4 fL (7.2-11.7); MONO # 0.5 K/uL (0.0-0.8); MONO % 6.7 % (0.0-10.0); NEUT # 4.6 K/uL (1.8-7.0); NEUT % 65.5 % (50.0-75.0); RBC 3.71 Mil/uL (3.80-5.20); RED CELL DISTRIBUTION WIDTH 14.4 % (11.5-14.5); WHITE BLOOD COUNT 7.1 K/uL (4.8-10.8)
[2018-01-15 12:18] LABS: BLOOD UREA NITROGEN 18 mg/dL (7-17); CALCIUM 9.3 mg/dl (8.6-10.4); GFR NON-AFRICAN AMERICAN 54
--- NOTE | 2018-01-15 12:42 | CP.PCM.PN ---
Subjective - Date & Time of Evaluation Date of Evaluation: 01/15/18 Time of Evaluation: 10:50 - Subjective Subjective: ROOM CLEANER NOTES Patient seen today, denies any chest pain, sob, abdominal pain, N/V/D, no bleeding reported hgb stable - 11.2<11.3<11.4 No overnight events reported by RN S/P colonoscopy- Internal bleeding hemorrhoids ( see full report for details) Objective - Vital Signs/Intake and Output Vital Signs (last 24 hours): Temp Pulse Resp BP Pulse Ox 97.6 F 79 20 178/81 H 97 01/15/18 07:00 01/15/18 11:12 01/15/18 07:00 01/15/18 11:12 01/15/18 07:00 Intake and Output: 01/15/18 01/15/18 06:59 18:59 Intake Total 1300 Balance 1300 - Medications Medications: Current Medications Alprazolam (Xanax) 0.5 mg PO BID [facility] Last Admin: 01/15/18 10:45 Dose: 0.5 mg Aspirin (Ecotrin) 81 mg PO DAILY [facility] Last Admin: 01/13/18 10:23 Dose: Not Given Diltiazem HCl (Cardizem Cd) 180 mg PO DAILY [facility] Last Admin: 01/15/18 10:45 Dose: 180 mg Gabapentin (Neurontin) 400 mg PO BID [facility] Last Admin: 01/15/18 10:45 Dose: 400 mg Hydrocortisone (Anusol-Hc) 0 gm WA BID [facility] Last Admin: 01/15/18 10:45 Dose: 1 applic Losartan Potassium (Cozaar) 50 mg PO DAILY [facility] Last Admin: 01/15/18 10:45 Dose: 50 mg Losartan Potassium (Cozaar) [address] [facility] Last Admin: 01/14/18 21:18 Dose: 25 mg Multivitamins (Hexavitamin) 1 tab PO DAILY [facility] Last Admin: 01/15/18 10:45 Dose: 1 tab Pantoprazole Sodium (Protonix Ec Tab) 40 mg PO DAILY [facility] Last Admin: 01/15/18 10:45 Dose: 40 mg Ranolazine (Ranexa) 500 mg PO DAILY [facility] Last Admin: 01/15/18 10:45 Dose: 500 mg Rosuvastatin Calcium (Crestor) [address] [facility] Last Admin: 01/14/18 21:18 Dose: 5 mg - Labs Labs: 01/15/18 11:47 01/15/18 11:47 Assessment and Plan - Assessment and Plan (Free Text) Assessment: A/P 77 yr old female with pmhx of Anxiety, Arthritis, Atrial Fibrillation, CAD, Cardia Arrhythmia , Depression, Fractures, GERD, Hiatal Hernia, HTN,admitted with chest pain, and rectal bleeding Troponinn x 3 - negative s/p colonoscopy - ( internal hemorrhoids ) see full report for details Bleeding scan - negative GI cleared for discharge home seen by Dr. Mckenna today, cleared fro discharge home today from cardiology standpoint and f/u with his office D/W Dr. Hoffman, cleared for discharge home today and f/u with his office in 1 week- Discharge plan discussed with patient who understands and agrees with plan
--- NOTE | 2018-01-27 19:42 | CP.PCM.DIS ---
Provider - Provider Date of Admission: 01/12/18 20:36 Attending physician: Franck Hoffman MD Time Spent in preparation of Discharge (in minutes): 45 Hospital Course - Lab Results Lab Results: Micro Results 01/13/18 18:24 [facility] MRSA Culture - Final MRSA NOT DETECTED 01/13/18 03:08 [facility] MRSA Culture (Admit) - Final MRSA NOT DETECTED Most Recent Lab Values WBC 7.1 K/uL (4.8-10.8) 01/15/18 11:47 RBC 3.71 Mil/uL (3.80-5.20) L 01/15/18 11:47 Hgb 11.2 g/dL (11.0-16.0) 01/15/18 11:47 Hct 32.4 % (34.0-47.0) L 01/15/18 11:47 MCV 87.5 fL (81.0-99.0) 01/15/18 11:47 MCH 30.2 pg (27.0-31.0) 01/15/18 11:47 MCHC 34.5 g/dL (33.0-37.0) 01/15/18 11:47 RDW 14.4 % (11.5-14.5) 01/15/18 11:47 Plt Count 290 K/uL (130-400) 01/15/18 11:47 MPV 7.4 fL (7.2-11.7) 01/15/18 11:47 Neut % (Auto) 65.5 % (50.0-75.0) 01/15/18 11:47 Lymph % (Auto) 23.9 % (20.0-40.0) 01/15/18 11:47 [place] % (Auto) 6.7 % (0.0-10.0) 01/15/18 11:47 Eos % (Auto) 3.4 % (0.0-4.0) 01/15/18 11:47 Baso % (Auto) 0.5 % (0.0-2.0) 01/15/18 11:47 Neut # (Auto) 4.6 K/uL (1.8-7.0) 01/15/18 11:47 Lymph # (Auto) 1.7 K/uL (1.0-4.3) 01/15/18 11:47 [place] # (Auto) 0.5 K/uL (0.0-0.8) 01/15/18 11:47 Eos # (Auto) 0.2 K/uL (0.0-0.7) 01/15/18 11:47 Baso # (Auto) 0.0 K/uL (0.0-0.2) 01/15/18 11:47 Sodium 145 mmol/L (132-148) 01/15/18 11:47 Potassium 4.8 mmol/L (3.6-5.2) 01/15/18 11:47 Chloride 105 mmol/L (98-107) 01/15/18 11:47 Carbon Dioxide 28 mmol/L (22-30) 01/15/18 11:47 Anion Gap 18 (10-20) 01/15/18 11:47 BUN 18 mg/dL (7-17) H 01/15/18 11:47 Creatinine 1.0 mg/dL (0.7-1.2) 01/15/18 11:47 Est GFR ( Amer) > 60 01/15/18 11:47 Est GFR (Non-Af Amer) 54 01/15/18 11:47 Random Glucose 86 mg/dL (65-105) 01/15/18 11:47 Calcium 9.3 mg/dl (8.6-10.4) 01/15/18 11:47 Total Bilirubin 0.3 mg/dL (0.2-1.3) 01/14/18 02:01 AST 38 U/L (14-36) H D 01/14/18 02:01 ALT 29 U/L (9-52) 01/14/18 02:01 Alkaline Phosphatase 95 U/L (38-126) 01/14/18 02:01 Total Creatine Kinase 33 U/L (30-135) 01/14/18 02:01 CK-MB (Mass) 0.92 ng/mL (0.0-3.38) 01/14/18 02:01 Troponin I < 0.0120 ng/mL (0.00-0.120) 01/14/18 02:01 NT-Pro-B Natriuret Pep 65.5 pg/mL (0-900) 01/12/18 19:19 Total Protein 6.3 g/dL (6.3-8.3) 01/14/18 02:01 Albumin 3.6 g/dL (3.5-5.0) 01/14/18 02:01 Globulin 2.7 gm/dL (2.2-3.9) 01/14/18 02:01 Albumin/Globulin Ratio 1.3 (1.0-2.1) 01/14/18 02:01 Triglycerides 171 mg/dL (0-149) H D 01/12/18 19:19 Cholesterol 153 mg/dL (0-199) 01/12/18 19:19 LDL Cholesterol Direct 78 mg/dL (0-129) 01/12/18 19:19 HDL Cholesterol 43 mg/dL (30-70) 01/12/18 19:19 Lipase 64 U/L (23-300) 01/12/18 19:19 Urine Color Yellow (YELLOW) 01/12/18 19:45 Urine Clarity Clear (Clear) 01/12/18 19:45 Urine pH 5.0 (5.0-8.0) 01/12/18 19:45 Ur Specific [place] 1.011 (1.003-1.030) 01/12/18 19:45 Urine Protein Negative mg/dL (NEGATIVE) 01/12/18 19:45 Urine Glucose (UA) Normal mg/dL (Normal) 01/12/18 19:45 Urine Ketones Negative mg/dL (NEGATIVE) 01/12/18 19:45 Urine Blood Negative (NEGATIVE) 01/12/18 19:45 Urine Nitrate Negative (NEGATIVE) 01/12/18 19:45 Urine Bilirubin Negative (NEGATIVE) 01/12/18 19:45 Urine Urobilinogen Normal mg/dL (0.2-1.0) 01/12/18 19:45 Ur Leukocyte Esterase Neg [place]/uL (Negative) 01/12/18 19:45 Urine WBC (Auto) < 1 /hpf (0-5) 01/12/18 19:45 Urine RBC (Auto) 1 /hpf (0-3) 01/12/18 19:45 Ur Squamous Epith Cells < 1 /hpf (0-5) 01/12/18 19:45 Blood Type O POSITIVE 01/13/18 13:54 Antibody Screen Negative 01/13/18 13:54 - Hospital Course Hospital Course: History of present illness: 77 female with a CAD, stent, hypertension, high cholesterolemia, event monitoring, peripheral vascular disease, status post a stent came to the emergency room episodes of shortness of breath, chest pain, rectal bleeding. Patient had a few episodes of bleeding last 1 week. Patient was having fresh bleeding rectally. At the same time she was also noted to have high elevated blood press. She felt some shortness of breath, and the dizziness and weakness. Patient was seen by gantry crane operator as an outpatient, scheduled to have colonoscopy. PMHx: Hypertension, coronary artery disease with stents, hypercholesterolemia, borderline diabetes,, peripheral vascular disease, Surgical Hx: Hiatal hernia repair, cholecystectomy, cardiac ablation for SVT, cardiac stents 2013, left leg vascular stent Family Hx: Father unknown. Mother had a history of hypertension, peripheral arterial disease. One brother had lung cancer and , another brother had epilepsy third brother had hypertension nonobstructive sleep apnea sister had a history peripheral vascular disease and hypertension Social history: Denies alcohol, denies tobacco, denies illicit drug use Allergies: tramadol, Penicillin, CT contrast, ticagrelor Review of system: Denies any chest pain at this time. But the blood pressure is somewhat better now than before. Mild exertional dyspnea noted. Vital signs stable otherwise On examination: Vital signs stable. Chest good air entry regular NONTENDER ABDOMEN SEEN IS ALERT AWAKE ORIENTED 0 FUNCTIONAL NEUROLOGICAL DEFICIT LABS REVIEWED CARDIAC MARKERS patient has a bright rectal bleeding noted ASSESSMENT AND RECOMMENDATION: 77-year-old female with a history of CAD, status post a stent hypertension high cholesterol admitted with the sudden onset of abdominal, chest pain. Elevated blood pressure. Clinical stable at this time. We'll get a cardiology evaluation. We'll place the patient on Protonix. Gastro intestinal evaluation. Bleeding scan ordered. IV fluid. Closely monitor. Will follow-up the patient Acute GI bleed most likely rectal in origin. Diverticular bleeding cannot be ruled out. Monitor H&H and will follow the patient Course in the Hospital: Patient started on IV fluid. Gastrointestinal evaluation was called. Underwent a colonoscopy screening. Colonoscopy showing no evidence of any acute bleeding, but engorged internal hemorrhoids noted, pandiverticulosis no active bleeding Final diagnoses: Rectal bleeding, lower GI bleeding. Stable now hemoglobin is stable. Hypertension CAD hypercholesterolemia peripheral vascular disease. Patient can be discharged home today and she will follow up as an outpatient. Sitz bath, Anusol suppository advised constipation to be controlled. Will follow the patient Discharge Exam - Head Exam Head Exam: ATRAUMATIC, NORMOCEPHALIC Discharge Plan - Follow Up Plan Condition: FAIR Disposition: HOME/ ROUTINE Instructions: Heart Healthy Diet, Heart Failure, Adult (DC), Hemorrhoids (DC), High Blood Pressure (DC), Heart Failure Exercise Guide Additional Instructions: Please f/u with Dr. Hoffman office in 1 week Please f/u with Dr. Mckenna office in 1 month- call and make appointment Resume all home medications Referrals: Rojas Mckenna MD [Staff Provider] - Franck Hoffman MD [Staff Provider] - Kt Cabrera MD [Staff Provider] -
== END 2018-01-15 16:21 | disposition home or self-care (01) | DRG 378 ==
LOC: C.ER 17:41 → C.9E 20:36 → C.9I 23:38 → C.5S 01-13 17:20
PROVIDERS: ADMIT Internal Medicine; ATTEND Internal Medicine
PROC: 0DJD8ZZ Inspection of Lower Intestinal Tract, Via Natural or Artificial Opening Endoscopic (ICD-10-PCS; principal; 2018-01-14 08:23)
DX: K62.5 Hemorrhage of anus and rectum (principal); I24.9 Acute ischemic heart disease, unspecified; K64.1 Second degree hemorrhoids; I16.0 Hypertensive urgency; K57.30 Diverticulosis of large intestine without perforation or abscess without bleeding; I11.0 Hypertensive heart disease with heart failure; I25.10 Atherosclerotic heart disease of native coronary artery without angina pectoris; I50.9 Heart failure, unspecified; K21.9 Gastro-esophageal reflux disease without esophagitis; I48.91 Unspecified atrial fibrillation; E11.51 Type 2 diabetes mellitus with diabetic peripheral angiopathy without gangrene; G47.30 Sleep apnea, unspecified; E78.00 Pure hypercholesterolemia, unspecified; Z86.73 Personal history of transient ischemic attack (TIA), and cerebral infarction without residual deficits; Z95.5 Presence of coronary angioplasty implant and graft; Z86.010 Personal history of colon polyps; Z90.49 Acquired absence of other specified parts of digestive tract; Z79.82 Long term (current) use of aspirin; Z79.899 Other long term (current) drug therapy

== ENCOUNTER 2018-06-17 07:59 | Outpatient (CLI) | payer MEDICARE | END 2018-06-17 08:00 | disposition home or self-care (01) | LOC: C.USIC 07:59 ==

== ENCOUNTER 2018-08-19 07:41 | Day surgery (SDC) | payer MEDICARE ==
[2018-08-18 09:20] VITALS: BMI 35.5
[2018-08-19 08:57] VITALS: PULSE 77; RESP 19; TEMP 97.3; O2SAT 97
--- NOTE | 2018-08-19 09:07 | CP.SDSHP ---
Same Day Surgery H & P - History Proposed Procedure: egd Pre-Op Diagnosis: dysphagia. abnormal UGI series - Previous Medical/Surgical History Cardiac: Hypertension, ASHD/CAD, Hx of CHF, Arrhythmia, PVD, Other (hyperlipidemia) Endocrine/Metabolic: Obesity Misc: Other (gerd, diverticulosis, ) Previous Surgical History: femoral stent - Allergies Allergies: Allergies tramadol Allergy (Severe, Verified 08/19/18 08:09) SWELLING "THROAT CLOSING" Penicillins Allergy (Intermediate, Verified 08/19/18 08:09) RASH ticagrelor [From [place]] Allergy (Intermediate, Verified 08/19/18 08:09) RASH chamonile Allergy (Severe, Uncoded 08/19/18 08:09) ANAPHYLAXIS ct contrast Allergy (Severe, Uncoded 08/19/18 08:09) SWELLING "CAN'T SWALLOW" - Physical Exam Vital Signs: Vital Signs 08/19/18 08:35 Temperature 97.3 F L Pulse Rate 77 Respiratory 19 Rate Blood Pressure 144/70 O2 Sat by Pulse 97 Oximetry Mental Status: Alert & Oriented x3 Neuro: WNL Heart: WNL Lungs: WNL GI: WNL - Impression Impression: dysphagia. abnormal UGI series Pt. Evaluated Today:Candidate for Anesthesia & Procedure: Yes - Date & Time Date: 08/19/18 Time: 09:07 Short Stay Discharge - Short Stay Discharge Admitting Diagnosis/Reason for Visit: DYSPHAGIA / GERD Disposition: HOME/ ROUTINE
[2018-08-19] MEDS ORDERED: Lidocaine Hydrochloride 5 ML INJ ONE ×2 (09:12→09:14)
[2018-08-19] MEDS ORDERED: Propofol 10 mg/ml Inj (20 ML) ONE (09:12)
[2018-08-19 10:03] VITALS: BP 126/64
== END 2018-08-19 10:49 | disposition home or self-care (01) ==
LOC: C.ENDO 07:41
PROVIDERS: ATTEND Internal Medicine Gastroenterology
DX: R13.10 Dysphagia, unspecified (principal); R93.3 Abnormal findings on diagnostic imaging of other parts of digestive tract; K21.9 Gastro-esophageal reflux disease without esophagitis; K44.9 Diaphragmatic hernia without obstruction or gangrene; K29.70 Gastritis, unspecified, without bleeding
CPT/HCPCS: 43239; 82948; 88305; 88312; 88313; 88342; J2001; J2704; J3010

== ENCOUNTER 2018-10-10 09:11 | Outpatient (CLI) | payer MEDICARE | END 2018-10-10 09:12 | disposition home or self-care (01) | LOC: C.VASC 09:11 | DX: I73.9 Peripheral vascular disease, unspecified (principal) ==